=== PATIENT | male | born 1950 | race Caucasian/White ===

== ENCOUNTER → 2024-02-01 13:57 | Outpatient (REF) | payer MEDICARE, SELFPAY | LOC: REG 13:57 | PROVIDERS: ATTENDING PHYSICIAN Family Medicine | DX: J18.1 Lobar pneumonia, unspecified organism (principal) | CPT/HCPCS: 71046 ==

== ENCOUNTER → 2024-02-03 17:06 | Outpatient (REF) | payer MEDICARE, SELFPAY | LOC: RAD 17:06 | PROVIDERS: ATTENDING PHYSICIAN Family Medicine | DX: M79.604 Pain in right leg (principal) | CPT/HCPCS: 93970 ==

== ENCOUNTER 2024-03-11 18:36 | Emergency (ER) | payer MEDICARE, SELFPAY ==
[2024-03-11 18:39] VITALS: BP 136/65
[2024-03-11 19:13] VITALS: BMI 25.8
--- NOTE | 2024-03-11 19:15 | ED.MUSCINJ ---
HPI-Injury
General
Chief Complaint: Musculo-Skeletal Complaint
Source: patient
Exam Limitations: none
Time Seen by Provider: 03/11/24 18:49
History of Present Illness-Injury
Is this injury a work related problem?: No
Is pt an associate of [facility]/[place]?: No
Initial Injury comments:
This is a 73 year old male that comes in with c/o right ankle pain. States that on he was up in [place] and he was carrying to baskets and getting off a boat. States that he slipped and fell injuring his right ankle. States that he has
been walking on it. States that he also hit his left forearm. Denies hitting his head or any LOC. Denies any fever, chills, chest pain, SOB, abd pain, nausea, vomiting, diarrhea, headache, dizziness, urinary burning.
Past History
Past History
ED Past Medical History: Asthma, HTN, Hypercholesterolemia and Other (PNA, PE, Chronic bronchitis, Renal calculus)
ED Past Surgical History: Orthopedic (5th finger surgery ) and Other (Thyroid cyst removed, left eye lid surgery, Hernia)
Social History
Tobacco: Non-smoker (Past surgical history review)
Alcohol: Occasional
Personal:
Living: with family
Employment: Retired
Review of Systems
Review of Systems
All Other Systems: ROS reviewed and negative except as documented in HPI and ROS
Constitutional: Reports no symptoms; Denies fever or chills
EENT: Reports no symptoms
Respiratory: Reports no symptoms; Denies cough or trouble breathing
Cardiac: Reports no symptoms; Denies chest pain
ABD/GI: Reports no symptoms; Denies abdominal pain, nausea, vomiting or diarrhea
: Reports no symptoms; Denies dysuria, frequency or urgency
Musculoskeletal: Reports joint pain (Right ankle pain)
Skin: Reports no symptoms
Neurological: Reports no symptoms; Denies dizzy or headache
Psychiatric: Reports no symptoms
Musculoskeletal Injury Exam
Musculoskeletal Injury Exam
Right Medial Ankle:
Pain with Movement?: Mild
Tender to palpation?: Mild
Soft tissue swelling?: Mild
External deformity and angulation?: None
Joint effusion?: None
Contusion?: None
Hematoma-local bleeding into tissue?: None
Strain- Sprain- Tear (Connective tissue injury)?: None
Crepitus with movement?: No
Joint instability?: No
Malalignment/deformity?: No
Range of motion: Limited (Due to pain)
Distal skin color and temperature: normal-warm & good color
Capillary Refill: normal
Normal distal neurovascular exam?: Yes
Phy Exam
General Physical Exam
General Presentation: well appearing and no apparent distress
General age: appears stated age
General Skin: warm and dry
General Habitus: normal
General Mental: alert
General Hydration: appears well hydrated
ENT Exam
ENT Exam: TM's normal, pharynx normal and neck supple
Eye Exam
Eye Exam: EOMI
Musculoskeletal Exam
Musculoskeletal Exam: other (right medial aspect tenderness with palpation. Mild swelling noted. Negative for any cervical neck tenderness or spinal tenderness. )
Skin Exam
Skin Exam: normal color, warm/dry, no petechia and other (Left forearm, abrasion)
Psychiatric Exam
Psychiatric Exam: normal mood/affect
Injury Course
Orders/Labs/Results
Orders:
Orders
03/11/24 18:41
Ankle, Right 3 view CR [CR Ankle - Right Min 3 Views *] Urgent
Comment:
Reason For Exam: slipped off boat twisted right ankle
03/11/24 19:30
Randy Wrap Right-Treatment ONCE
Air Splint Right-Treatment ONCE
MDM/Problems Addressed
Differential Diagnosis Includes:
right ankle fracture Ankle sprain
MDM/Problems Addressed:
This is a 73 year old male that comes in with c/o right ankle pain. States that he was getting off a boat with baskets and he slipped. Patient is c/o right ankle pain.
Will Get X-ray
Back into see patient. Explained that there are no fracture or dislocation. Will place patient in an air splint and randy. Patient to use Tylenol 1000mg every 6 hours for pain. Rest, ice and elevated. If after 5-7 days patient feels that his ankle is
not getting any better he will need to see the biomedical specialist. Discussed the use of Crutches but patient has been walking on the foot and feel that since he is on Eliquis it is better to avoid the crutches. Will discharge home.
Chronic conditions affecting care:
NA
Acute Exacerbation and/or Progression of Chronic Illness:
NA
*Radiology
Radiology exam reviewed: preliminary read by ED provider (Right ankle negative for fracture or dislocation. ) and radiology read reviewed (right ankle-Degenerative changes, No findings to suggest recent cortical fracture)
*Pulse Oximetry
Patient hypoxic: no
*EKG
Interpreted by ED Provider?: NA
Rate: EKG- N/A
*Word Processor Operator Interpretation
Rate: Word Processor Operator- N/A
*Critical Care Note
Total Time (30-74mins, 75-104mins- exclusive of procedures): Not Applicable
ED Attending Note
-
Portions of this chart may have been created with voice recognition software.� Occasional wrong word or��sound alike� substitutions may have occurred due to the inherent limitations of voice recognition software.
Discharge Plan
Departure
Patient Disposition: Home (Routine Discharge)
Date of Disposition: 03/11/24
Time of Disposition: 19:45
Patient with high blood pressure during this ER visit?: Yes
Condition: Good
Covid-19: Not Applicable
Discharge Problem:
Right ankle sprain
Instructions: Ankle Sprain ED, Ankle air splint and elastic bandage, BLOOD PRESSURE, RICE Therapy
Prescriptions:
No Action
hydralazine 25 mg Tablet
75 mg PO BID
montelukast 10 mg Tablet
10 mg PO QPM
memantine 10 mg Tablet
10 mg PO BID
losartan-hydrochlorothiazide 100-25 mg tablet
1 tab PO QPM
albuterol sulfate 90 mcg/actuation HFA aerosol inhaler
2 puff INHALATION R Q4 PRN (Reason: sob/wheezing)
Eliquis 5 mg Tablet
5 mg PO BID Qty: 60 0RF
itraconazole 100 mg Capsule
100 mg PO QPM
Referrals:
Dar Mauricio MD [Active] - Follow up in 1 week
Nahomi Hogan MD [Family Provider] -
Activity Restrictions/Additional Instructions:
As discussed, no fracture or dislocation was seen on the x-ray. Please use the randy and air splint until you are pain free. You may use Tylenol 1000mg every 6 hours for pain. Rest, ice and elevated. If after the next 5-7 days you feel that your ankle
is not getting any better, you will need to see the biomedical specialist. IF YOU HAVE ANY OTHER CONCERNS PLEASE RETURN TO THE EMERGENCY ROOM.
Interventions
Interventions:
*Risk Screen - Suicide Last Done: 03/11/24 19:17
*General Assessment Last Done: 03/11/24 19:13
*Neglect/Abuse Screening Last Done: 03/11/24 19:17
ED- Fall Risk Assessment Last Done: 03/11/24 19:13
*ED COVID-19 Vaccine History Last Done: 03/11/24 18:39
ED-Musculoskeletal Assessment Last Done: 03/11/24 19:14
Discharge Date and Time
Print Language: TAMAZIGHT
== END 2024-03-11 20:18 | disposition home or self-care (01) ==
LOC: EMR 18:36
PROVIDERS: EMERGENCY PHYSICIAN Emergency Medicine; FAMILY PHYSICIAN Internal Medicine
DX: S93.401A Sprain of unspecified ligament of right ankle, initial encounter (principal); W01.0XXA Fall on same level from slipping, tripping and stumbling without subsequent striking against object, initial encounter; E78.00 Pure hypercholesterolemia, unspecified; I10 Essential (primary) hypertension; Z79.01 Long term (current) use of anticoagulants; Z87.442 Personal history of urinary calculi
CPT/HCPCS: 99283; 73610

== ENCOUNTER 2024-05-13 23:55 | Inpatient (IN) | payer MEDICARE, SELFPAY ==
[2024-05-13 20:40] VITALS: BP 125/63
[2024-05-13 21:13] VITALS: BP 129/58
[2024-05-13 21:15] VITALS: BP 129/58
[2024-05-13 21:19] LABS: % Basophils 0.1 % (0-2); % Eosinophils 0.1 % (0-6); % Immature Granulocytes 0.5 % (0-0.5); % Monocytes 10.7 % (1.7-9.3); % Neutrophils 77.6 % (42.2-75.2); Absolute Immature Granulocytes 0.1 10^3/uL (0-0.05); Absolute Lymphocytes 1.8 10^3/uL (1.2-3.4); Absolute Monocytes 1.7 10^3/uL (0.1-0.6); Absolute Neutrophils 12.6 10^3/uL (1.4-6.5); Hematocrit 35.2 % (39.0-52.0); Hemoglobin 12.2 g/dL (13.0-18.0); Mean Corp Hgb Conc. 34.7 g/dL (33.0-37.0); Mean Corpuscular Hgb 34.4 pg (27.0-31.0); Mean Corpuscular Volume 99.2 fL (80.0-94.0); Mean Platelet Volume 8.8 fL (7.4-10.4); Nucleated Red Blood Cells % 0 % (-); Platelet Count 186 10^3/uL (130-400); Red Blood Cell Count 3.55 10^6/uL (4.70-6.10); Red Cell Dist. Width 15.2 % (11.5-14.5); White Blood Cell Count 16.2 10^3/uL (4.8-10.8)
[2024-05-13 21:29] LABS: INR 1.24; PT 15.5 Sec (11.4-14.6)
[2024-05-13 21:30] LABS: APTT 37.3 Sec (23.4-35.0)
[2024-05-13 21:33] LABS: Erythrocyte Sed Rate 31 mm/hour (0-20)
--- NOTE | 2024-05-13 21:37 | ED.GENMED ---
History of Present Illness
General
Chief Complaint: Change in Mental Status
Source: patient, family and ambulance crew
Exam Limitations: clinical condition, altered mental status and dementia (?)
Time Seen by Provider: 05/13/24 20:48
Nursing documentation reviewed up to this point in time: agreed with
History of Present Illness
History of Present Illness:
This a pleasant 73-year-old male that presents with memory issues. Patient has a recent history of memory problems. Today he was supposed to pick his up at the airport and completely forgot. Family spoke to him and felt that he was confused.
They went to check on him and confirmed his confusion. Upon arrival, patient was awake alert and oriented but did have some memory issues. Patient denied chest pain or shortness of breath. Does have a history of chronic lung issues. He is on
Eliquis. He took 2-1/2 mg of Eliquis today.
If applicable-neuro sx onset
Date of onset of symptoms: 05/13/24
Date last time pt seen normal: 05/13/24
Time last time pt seen normal: 12:30
Past History
Past History
ED Past Medical History: Asthma, HTN, Hypercholesterolemia and Other (PNA, PE, Chronic bronchitis, Renal calculus)
ED Past Surgical History: Orthopedic (5th finger surgery ) and Other (Thyroid cyst removed, left eye lid surgery, Hernia)
Social History
Tobacco: Non-smoker (Past surgical history review)
Alcohol: Occasional
Personal:
Living: with family
Employment: Retired
Review of Systems
Review of Systems
Allergies reviewed?: Yes
Unable to obtain full review of systems at this time due to: dementia (? Being worked up for memory issues)
Other source history: family
All Other Systems: ROS reviewed and negative except as documented in HPI and ROS
Constitutional: Denies fever or fatigue
EENT: Reports no symptoms
Respiratory: Reports no symptoms
Cardiac: Reports no symptoms
ABD/GI: Reports no symptoms
: Reports no symptoms
Musculoskeletal: Reports no symptoms
Skin: Reports no symptoms
Neurological: Denies headache or weakness
Endocrine: Reports no symptoms
Hematologic/Lymphatic: Reports no symptoms
Psychiatric: Reports no symptoms
Phy Exam
General Physical Exam
General Presentation: well appearing and no apparent distress
General Skin: warm and dry
General Habitus: normal
General Mental: alert
General Hydration: appears well hydrated
ENT Exam
ENT Exam: EOMI, pharynx normal, neck supple and normocephalic
Eye Exam
Eye Exam: PERRL, cornea clear and conjunctiva normal
Cardiovascular Exam
Cardiovascular Exam: regular rate/rhythm, no edema, no murmur and normal peripheral pulses
Pulmonary Exam
Pulmonary Exam: lungs clear, no respiratory distress, no rales, no crackles, no rhonchi, no stridor, no wheezing and no cough
Gastrointestinal Exam
Gastrointestinal Exam: normal bowel sounds, non tender, soft, no organomegaly, no pulsatile mass and non distended
Neurological Exam
Neurological Exam: alert, oriented x3, no motor deficits and speech normal
NIH Stroke Score
Level of Consciousness: 0 - Alert
LOC questions: 0-Answers both correctly
LOC Commands: 0-Performs both correctly
Best Gaze: 0-Normal
Visual [place]: 0=Normal, no visual loss
Facial palsy: 0=Normal, symmetrical
Motor - Right Arm: 0=No drift 10 seconds
Motor - Left Arm: 0=No drift 10 seconds
Motor - Right Le-No drift 5 seconds
Motor - Left Le-No drift 5 seconds
Limb Ataxia: 0-Absent
Sensation: 0-Normal
Best Language: 1-Mild aphasia
Dysarthria: 0-Normal
Extinction and Inattention: 0-No abnormality
Total Score:: 1
Alteplase Contraindication
Reasons for NON-Treatment with Thrombolytics: Time and Use of any novel anticoagulant (Pradaxa, Xarelto) in the last 48 hours
Musculoskeletal Exam
Musculoskeletal Exam: full ROM, no edema and neuro vasc intact
Skin Exam
Skin Exam: normal color, warm/dry, no rash and no petechia
Psychiatric Exam
Psychiatric Exam: normal mood/affect
Course
Orders/Labs/Results
Orders:
Orders
05/13/24 20:48
CT Head W/o Cont STROKE ALERT Urgent
Comment:
Reason For Exam: new onset memory loss
CT Head/Neck Ang STROKE ALERT Urgent
Comment:
Reason For Exam: new onset memory loss
05/13/24 21:14
Complete Blood Count/With Diff Urgent
Comprehensive Metabolic Panel Urgent
Erythrocyte Sed Rate Urgent
PTT Urgent
Prothrombin Time Urgent
05/13/24 21:36
Apixaban [Eliquis] 2.5 mg PO NOW STA
05/13/24 21:37
Aspirin 325 mg PO NOW STA
05/13/24 21:42
CR Chest - 2 Views Urgent
Comment:
Reason For Exam: hx of lung condition
05/13/24 21:51
Urinalysis Reflex To Culture Urgent
Date Specimen was Collected: 05/13/24
Time Specimen was Collected: 23:18
05/13/24 23:25
Procalcitonin Urgent
PCT Algorithmm Indication: Sepsis
Azithromycin 500 mg/250 ml [Zithromax Infusion] 500 mg in 250 ml IV NOW
CefTRIAXone [Rocephin] 1,000 mg IV NOW STA
05/13/24 23:30
Lactic Acid Q4H
Comment: CANCEL 2nd LACTIC ACID IF 1st LACTIC ACID IS LESS THAN 2
0.9% Sodium Chloride 1000 ml [Nss] 1,000 ml IV 250 mls/hr
05/14/24 03:30
Lactic Acid Q4H
Comment: CANCEL 2nd LACTIC ACID IF 1st LACTIC ACID IS LESS THAN 2
Abnormal Lab Results
05/13/24
21:14
WBC 16.2 H 10^3/uL
(4.8-10.8)
RBC 3.55 L 10^6/uL
(4.70-6.10)
Hgb 12.2 L g/dL
(13.0-18.0)
Hct 35.2 L %
(39.0-52.0)
MCV 99.2 H fL
(80.0-94.0)
MCH 34.4 H pg
(27.0-31.0)
RDW 15.2 H %
(11.5-14.5)
Abs Immat Gran (auto) 0.1 H 10^3/uL
(0-0.05)
Absolute Neuts (auto) 12.6 H 10^3/uL
(1.4-6.5)
Absolute Monos (auto) 1.7 H 10^3/uL
(0.1-0.6)
Neutrophils % 77.6 H %
(42.2-75.2)
Lymphocytes % 11.0 L %
(20.5-51.1)
Monocytes % 10.7 H %
(1.7-9.3)
ESR 31 H mm/hour
(0-20)
PT 15.5 H Sec
(11.4-14.6)
APTT 37.3 H Sec
(23.4-35.0)
BUN 39 H mg/dl
(9-20)
Creatinine 1.4 H mg/dL
(0.7-1.3)
Glucose 104 H mg/dl
(70-99)
Total Bilirubin 1.5 H mg/dl
(0.2-1.3)
AST 15 L U/L
(17-59)
Total Protein 5.0 L g/dl
(6.3-8.2)
Albumin 3.0 L g/dl
(3.5-5.0)
05/13/24 21:14
05/13/24 21:14
Vital Signs
Initial and Last Documented VS:
Initial Vital Signs
Temp Pulse Resp BP Pulse Ox
98.5 F 87 16 125/63 97
05/13/24 20:40 05/13/24 20:40 05/13/24 20:40 05/13/24 20:40 05/13/24 20:40
Last Documented Vital Signs
Temp Pulse Resp BP Pulse Ox
98.5 F 75 16 116/55 92
05/13/24 20:40 05/13/24 22:00 05/13/24 22:02 05/13/24 22:00 05/13/24 22:00
*Pulse Oximetry
Patient hypoxic: no
*Critical Care Note
Total Time (30-74mins, 75-104mins- exclusive of procedures): Not Applicable
Update Note
Update Note:
IMPRESSION:
CT Brain: No acute intracranial process. Specifically, no evidence of acute hemorrhage. Mild global parenchymal volume loss with likely sequelae of mild small vessel ischemic disease.
CTA Head: No significant arterial stenosis. No aneurysm.
CTA Neck: No significant arterial stenosis. There is similar appearance of the masslike consolidation with bronchiectasis within the bilateral upper lobes. There are additional foci of bronchiectasis with areas of likely mucous plugging.
Initial findings of no intracranial bleed or large vessel occlusion were discussed via [place] text at 2107 and 2113
ED Attending Note
-
Portions of this chart may have been created with voice recognition software.� Occasional wrong word or��sound alike� substitutions may have occurred due to the inherent limitations of voice recognition software.
Discharge Plan
Departure
Patient Disposition: Admit
Date of Disposition: 05/13/24
Time of Disposition: 23:29
Admit to: Telemetry
Presentation/result/management discussed w/ accepting MD/DO: Hospitalist
Condition: Good
Discharge Problem:
Aphasia, Pneumonia
Prescriptions:
No Action
hydralazine 25 mg Tablet
75 mg PO BID
montelukast 10 mg Tablet
10 mg PO QPM
memantine 10 mg Tablet
10 mg PO BID
losartan-hydrochlorothiazide 100-25 mg tablet
1 tab PO QPM
albuterol sulfate 90 mcg/actuation HFA aerosol inhaler
2 puff INHALATION R Q4 PRN (Reason: sob/wheezing)
itraconazole 100 mg Capsule
100 mg PO QPM
Eliquis 5 mg tablet
2.5 mg PO BID
fluticasone propion-salmeterol [Wixela Inhub] 500-50 mcg/dose Blister With Device
1 inh INHALATION BID
Referrals:
UNKNOWN - PT DOES,NOT KNOW [Family Provider] -
Interventions
Interventions:
*Risk Screen - Suicide Last Done: 05/13/24 21:15
*General Assessment Last Done: 05/13/24 20:40
*Neglect/Abuse Screening Last Done: 05/13/24 21:15
*ED COVID-19 Vaccine History Last Done: 05/13/24 21:15
ED- Neurological Assessment Last Done: 05/13/24 21:16
ED Swallowing Screen Last Done: 05/13/24 21:21
Discharge Date and Time
Print Language: ARMENIAN
[2024-05-13 21:41] LABS: ALT (SGPT) 15 U/L (0-50); AST (SGOT) 15 U/L (17-59); Alkaline Phosphatase 59 U/L (38-126); Blood Urea Nitrogen 39 mg/dl (9-20); Calcium 9.6 mg/dl (8.4-10.2); Carbon Dioxide 23 mmol/L (22-30); Chloride 106 mmol/L (98-107); Glucose 104 mg/dl (70-99); Potassium 4.3 mmol/L (3.5-5.1); Sodium 136 mmol/L (135-145); Total Bilirubin 1.5 mg/dl (0.2-1.3); eGFR 52.41
[2024-05-13] MEDS: ASPIRIN 325 MG PO (21:41)
[2024-05-13] MEDS: ELIQUIS 2.5 MG PO (21:41)
[2024-05-13 22:00] VITALS: BP 116/55
--- NOTE | 2024-05-13 23:36 | HPS.HSE ---
Addendum entered and electronically signed by Lexy Andrade MD 05/14/24 00:07:
Discussed with the PA, please review updated note
Original Note:
Family Physician
-
Family Physician: NOT KNOW UNKNOWN - PT DOES
Chief Complaint
-
Amnesia
History of Present Illness
73-year-old male came to ER today due to forgetting to pick his up at the airport. His family reports speaking with him and realizing he forgot to pick his up today. Family states he did go to the airport he was unable to use his phone
he forgot how to dial and was unable to find his . They felt he was confused although he does have short-term memory impairment and is on Namenda 10 mg twice daily. He has history of chronic lung disease. He has had a cough with yellow phlegm
x 1 month per his . He denies shortness breath, fever, chills, chest pain, palpitations, abdominal pain, nausea, vomiting, diarrhea, urinary symptoms.
He has past medical history HTN, nonobstructive CAD on cath 2015, first-degree AV block, dilated aortic root, mild AR, mild TR, pulm HTN, asthma mild and intermittent, chronic bronchitis, bronchiectasis, allergic bronchopulmonary aspergillosis,
chronic rhinitis, extensive bilateral PE and left lower extremity DVT 05/08/2023 on Eliquis, pneumothorax 2014, 2.5 cm nodular mass left cardiophrenic angle on chest x-ray 09/01/2023, CKD 3A, GERD, colonic polyps, diverticulosis, nephrolithiasis,
short-term memory impairment, migraines, left thyroid lobe lesion incidentally on chest CT 04/26/2023, gout, melanoma status post multiple excisions
Medical History
Past Medical History
Past Medical History: Reports Other
Additional Past Medical History:
. Hypertension.
Mild, non-obstructive coronary artery disease on cath 2015.
First degree AV block.
Dilated aortic root.
Mild aortic regurgitation.
Mild tricuspid regurgitation.
Pulmonary hypertension.
Asthma, mild and intermittent.
Chronic bronchitis with chronic cough.
Bronchiectasis.
Allergic bronchopulmonary aspergillosis.
Chronic rhinitis.
Extensive bilateral pulmonary embolism and left lower extremity
DVT, 04/2023, on Eliquis. Hypercoagulable work-up pending.
Pneumothorax 2014.
2.5 cm nodular mass at the left cardiophrenic angle on chest
x-ray 09/01/2023; work-up with pulmonary ongoing.
Mild renal insufficiency per pre-operative labs.
GERD.
Colon polyps.
Diverticulosis.
Cholelithiasis, asymptomatic.
Nephrolithiasis.
Short-term memory impairment.
Migraines
Left thyroid lobe lesion noted incidentally on chest CTA 04/2023.
Gout.
Skin cancer including Melanoma, status post multiple excisions.
Peripheral eosinophilia.
Past Surgical History: Reports Other (Thyroid cyst removal, eyelid surgery, umbilical hernia repair, left fifth finger surgery)
Social History
Alcohol: None
Drug: None
Personal:
Living: With Family
Family History
Family History: Not pertinent
Allergies / Home Medications
Allergies reflects when Allergies were last updated in [facility].
Home Medications with original date entered in [facility]
Allergy/Medication List:
Allergies
Allergy/AdvReac Type Severity Reaction Status Date / Time
cigarette smoke Allergy Asthma Verified 03/11/24 18:40
exacerbation
mesa Allergy Asthma Verified 03/11/24 18:40
exacerbation
grass pollen Allergy asthma Verified 03/11/24 18:40
exacerbation
pollen extracts Allergy Runny Verified 03/11/24 18:40
nose,
sinus
infections
- seasonal
dogs Allergy asthma Uncoded 03/11/24 18:40
exacerbation
Home Medications
hydralazine 25 mg tablet 75 mg PO BID Blood Pressure 04/25/23
memantine 10 mg tablet 10 mg PO BID Neurological Condition 04/25/23
montelukast 10 mg tablet 10 mg PO QPM Lung/Breathing Issues 04/25/23
albuterol sulfate 90 mcg/actuation aerosol inhaler 2 puff inhalation R Q4 PRN sob/wheezing 04/26/23
losartan 100 mg-hydrochlorothiazide 25 mg tablet 1 tab PO QPM Blood Pressure 04/26/23
itraconazole 100 mg capsule 100 mg PO QPM 09/20/23
apixaban 5 mg tablet (Eliquis) 2.5 mg PO BID 05/13/24
fluticasone 500 mcg-salmeterol 50 mcg/dose blistr powdr for inhalation (Wixela Inhub) 1 inh inhalation BID 05/13/24
Review of Systems
-
History Source: Patient and Family
A 12 point ROS was completed and negative except as noted: Yes
Constitutional: Reports Other (Difficulty remembering picking his up today had difficulty recognizing a phone and how to use it); Denies Fever, Fatigue or Chills
EENT: Denies Sore Throat or Mouth Swelling
Respiratory: Reports Cough (Yellow in color); Denies Trouble Breathing
Cardiac: Denies Chest Pain, Diaphoresis, Palpitations or Syncope
Abdomen/GI: Denies Abdominal Pain, Nausea, Vomiting, Diarrhea or Constipated
: Denies Dysuria, Frequency, Flank Pain, Incontinence, Difficulty Voiding or Urgency
Musculoskeletal: Denies Joint Pain
Skin: Denies Itching or Rash
Neurological: Denies Dizzy, Headache or Weakness
Endocrine: Reports No Symptoms
Hematologic/Lymphatic: Reports No Symptoms
Psych: Reports Calm
Physical Exam
Vital Signs
Vital Signs
Temp Pulse Resp BP Pulse Ox
98.5 F 72 21 116/55 92
05/13/24 20:40 05/13/24 23:30 05/13/24 23:30 05/13/24 22:00 05/13/24 23:30
Physical Exam
General: Comfortable; No Fever or Chills
HEENT: NormoCephalic, Anicteric, Moist mucous membranes, PERRLA, [place] Conjunctivae and No Ptosis
Respiratory: Clear; No Wheezes, Rales or Rhonchi
Cardiac: S1/S2 and Irregular Rhythm (Concern for A-fib will check EKG to confirm); No Peripheral Edema
Breast: Deferred by me
GI: Soft, Non Tender, Non Distended, Normal Bowel Sounds and No Hepatosplenomegaly
Rectal: Deferred by Provider
Genito-urinary: Deferred by me
Musculoskeletal: No Clubbing, No Cyanosis and No Edema
Skin: Warm and Dry; No Rash or Jaundice
Neuro: AO x 3 (The patient has problems with short-term memory impairment typically), Nonfocal/grossly intact, Cranial Nerves Intact and No Sensory Deficits; No Slurred Speech, Facial Droop or Tremors
Psych: Calm
Laboratory Results
-
05/13/24 21:14
05/13/24 21:14
Laboratory Results
PT 15.5 Sec (11.4-14.6) H 05/13/24 21:14
INR 1.24 05/13/24 21:14
APTT 37.3 Sec (23.4-35.0) H 05/13/24 21:14
Total Bilirubin 1.5 mg/dl (0.2-1.3) H 05/13/24 21:14
AST 15 U/L (17-59) L 05/13/24 21:14
ALT 15 U/L (0-50) 05/13/24 21:14
Alkaline Phosphatase 59 U/L (38-126) 05/13/24 21:14
Data Reviewed
-
Diagnostic Radiology: Report Reviewed by me
CT Scan: Report Reviewed by me
Impression/Plan
-
Impression/plan:
Admit to telemetry
#Right lower lobe pneumonia
WBC 16.2 with left shift, afebrile 92% RA
-Zithromax, Rocephin
-Incentive spirometry
- follow cbc, bmp
#Amnesia-concern possible CVA
#Hx chronic short-term memory impairment/ dementia
-Consult neurology
-Continue oral Eliquis
-Check lipid profile, HgbA1c
-PT/OT/case management
-Continue memantine 10 mg p.o. twice daily
CTA brain/head and neck without contrast: No acute intracranial process, no arterial stenosis, no aneurysm.
Masslike consolidation within the bronchiectasis of bilateral upper lobes with areas of mucous plugging
#Masslike consolidation within the bronchiectasis of bilateral upper lobes with areas of mucous plugging
Would consider CT chest once ruled out for stroke to evaluate masslike consolidation further
#Possible A-fib on monitor
-Will obtain EKG
-Continue [employer] Eliquis 2.5 mg twice daily
-If EKG showing A-fib will consult CBC cardiology
#Asthma mild and intermittent-no acute exacerbation
#chronic bronchitis/ bronchiectasis
#allergic bronchopulmonary aspergillosis
-Continue albuterol as needed
#CKD 3 A
Creat 1.4 baseline 1. 1�1.3
#Extensive bilateral PE and left lower extremity DVT 05/08/2023
-Continue Eliquis 2.5 mg twice daily
#HTN
Continue hydralazine 75 mg twice daily
-Continue losartan/HCTZ 1 tab every afternoon
#Nonobstructive CAD on cath 2015
#First-degree AV block hx
#dilated aortic root
#mild AR,mild TR
#Pulm HTN
#GERD
#colonic polyps hx
#diverticulosis hx
Other past medical history:
Pneumothorax 2014
2.5 cm nodular mass left cardiophrenic angle on chest x-ray 09/01/2023,
chronic rhinitis
Nephrolithiasis
Migraines
Left thyroid lobe lesion incidentally on chest CT 04/26/2023
Gout
Melanoma status post multiple excisions
DVT prophylaxis
Continue [employer] Eliquis
Full code
[2024-05-13] MEDS: ZITHROMAX INFUSION 250 IV (23:51)
[2024-05-13] MEDS: NSS 1000 IV (23:51)
[2024-05-13] MEDS: ROCEPHIN 1000 MG IV (23:51)
[2024-05-14] VITALS (9 sets, daily range): BP systolic 106–119; BP diastolic 42–65; PULSE 68; O2SAT 94; BMI 25.0
--- NOTE | 2024-05-14 00:01 | W.PN.UPDATE ---
Update Note
Progress Note Update
Seen and examined and discussed, awake and alert oriented to person and place and knows month is April but does not know the date, brought to the hospital after and the family can await about it but she supposed to pickler helper his from the
air[place] and look like he mated there but he were not able to find his , his baseline usually oriented x 3 but Some degree of cognitive dysfunction which is confirmed by the and the daughter. He has been coughing for a month-yellowish
phlegm otherwise no fever or chill or any weakness or numbness in extremities no facial droop, no urinary or bowel incontinent.
Vital signs reviewed
Physical exam:
General: Awake, alert and oriented x3, not in distress and holds appropriate conversation., Pleasantly confused and cognitive dysfunction appreciated
HEENT: No active discharge, ecchymosis or bruising, moist lips, tongue and mucous membrane.
Eyes: No discharge or red conjunctiva, no nystagmus, pupils are reactive and equal
Neck:Supple, no JVD no bruit no goiter.
Respiratory: Normal AP contour and diameter, normal chest wall movement, normal respiratory effort, no respiratory distress,
Lungs: Good air entry bilaterally, no wheezing or rhonchi, no rales or crackles
Heart: S1, S2 regular, normal rate, no added sound.
Gastrointestinal: Positive bowel sounds, soft, nontender, no guarding or rigidity or organomegaly
Musculoskeletal: , no chest wall abnormality or tenderness. All joints and extremities have good range of motion, no muscle tenderness or any joint swelling or tenderness.
Extremities: No pitting edema, good peripheral pulses, good range of motion
Skin: Warm and dry, no ulceration, normal color.
Neurological: Awake, alert and oriented x3, knows it is April but does not answer what day of the week, cranial nerve II-XII grossly intact, speech clear and comprehensive, good muscle tone, normal sensory and motor function no facial droop,
extension intention intact
Psychiatric: Normal mood, normal thought and judgment, normal affect,
Workup including labs, imaging,
Assessment and plan:
Confusion: Stroke admitted to be considered, seen by neurology, CT head CTA head and neck was reviewed and showed no acute abnormality
Neurocheck
Get MRI to complete the workup if the MRI positive then may need an echo
Swallowing eval
Patient already anticoagulated
Add statin
Lipid panel
Pneumonia on the right side, chest x-ray shows some chronic change shoulders some new consolidation masslike, will cover with Rocephin and Zithromax for pneumonia while once stable and stroke ruled out may need a CT chest to rule out mass lesion.
The monitor heart rate is irregular irregular, A-fib may need to be considered on rule out
Get an EKG
Patient on Eliquis, EKG showed A-fib and will cardiology,
EKG ordered
Discussed with the night covering team
History of DVT: Anticoagulated with Eliquis was changed recently to 2.5 twice daily
The rest of the assessment management as per H&P
All discussed with the patient and the family
Discussed with nurse practitioner
CODE STATUS full code
DVT prophylaxis is Eliquis
[2024-05-14 00:13] LABS: Lactic Acid 1.1 mmol/L (0.7-2.0)
[2024-05-14 00:30] LABS: Procalcitonin 1.68 ng/ml (0.0-0.25)
--- NOTE | 2024-05-14 01:32 | PTCARENOTE ---
Pt arrived onto floor @0132. Pt able to walk into room with minimal assistance. Pt with no complaints of pain or SOB at this time. Pt oriented to room and call morgan; will continue to monitor.
[2024-05-14] MEDS: NSS 1000 IV ×4 (05:42→22:50)
[2024-05-14 08:05] LABS: % Basophils 0.2 % (0-2); % Eosinophils 0.8 % (0-6); % Immature Granulocytes 0.5 % (0-0.5); % Lymphocytes 10.6 % (20.5-51.1); % Monocytes 10.6 % (1.7-9.3); % Neutrophils 77.3 % (42.2-75.2); Absolute Eosinophils 0.1 10^3/uL (0-0.7); Absolute Immature Granulocytes 0.1 10^3/uL (0-0.05); Absolute Lymphocytes 1.4 10^3/uL (1.2-3.4); Absolute Monocytes 1.4 10^3/uL (0.1-0.6); Absolute Neutrophils 10.2 10^3/uL (1.4-6.5); Hematocrit 34.3 % (39.0-52.0); Hemoglobin 11.8 g/dL (13.0-18.0); Mean Corp Hgb Conc. 34.4 g/dL (33.0-37.0); Mean Corpuscular Volume 104.6 fL (80.0-94.0); Mean Platelet Volume 9.7 fL (7.4-10.4); Nucleated Red Blood Cells % 0 % (-); Platelet Count 152 10^3/uL (130-400); Red Blood Cell Count 3.28 10^6/uL (4.70-6.10); Red Cell Dist. Width 15.3 % (11.5-14.5); White Blood Cell Count 13.1 10^3/uL (4.8-10.8)
[2024-05-14] MEDS: ADVAIR HFA 230/21 MCG INHALER 2 PUFF INH ×2 (08:17→19:16)
[2024-05-14 08:30] LABS: HDL Cholesterol 55 mg/dl; LDL Cholesterol, Calculated 30 mg/dl; Total Cholesterol 101 mg/dl (50-199); Triglyceride 81 mg/dl (10-149); Very Low Density Lipoprotein 16 mg/dl (0-30)
--- NOTE | 2024-05-14 08:47 | W.PN.HOSP.TC ---
Today's Communication/Plan
-
MRI of the brain. IV antibiotics.
Assessment / Plan
Assessment / Plan
Physical exam:
General: Acute on chronically ill
HEENT: Normocephalic, Atraumatic and Moist Mucous Membranes
Respiratory: Bilateral scattered rhonchi; Negative Wheezes, or Rales
Cardiac: Regular Rhythm and S1/S2
GI: Soft, Nontender and Nondistended
Musculoskeletal: No Clubbing, No Cyanosis and No Edema
Neuro: Awake, Alert and Oriented x2, no gross neurological deficits appreciated today. Generalized weakness.
Psych: Calm
A/P:
Toxic metabolic encephalopathy:
Unclear if stroke related or pneumonia or dehydration.
He does have underlying cognitive deficits/memory impairment.
Continue Eliquis 2.5 mg twice daily and atorvastatin 40 mg nightly
Plan for MRI of the brain
Seen CT scan of the head and no acute intracranial abnormalities
Restarted antibiotics
Continue Namenda
Discussed with neurology today
Discussed with at bedside today
PT OT eval
Pneumonia versus other:
Seen chest x-ray by myself and my interpretation opacities in right lower lobe present but he has chronic opacities and findings on his chest images in the past as well.
Restart IV Rocephin and azithromycin today
Might need CT scan of the chest for further evaluation.
Stop current IV fluid rate to 250 cc/h of normal saline. If anything keep at 85 mL or stop altogether.
Obtained twelve-lead EKG and QTc is not prohibitive
WBC trending down from 16 to 13 (of note, patient has been on steroids as outpatient)
Pulmonary consult-discussed with pulmonary today
Chronic pulmonary aspergillosis/asthma:
On itraconazole on a 100 mg p.o. nightly
On steroids outpatient recently.
DVT/PE:
Continue Eliquis
MELVIN on CKD stage IIIa:
Continue IV fluids but decrease significantly his rate today
Repeated BMP today.
Creatinine 1.1 today from 1.4. BUN is coming down as well.
Electrolytes within normal limits today.
Avoid nephrotoxic
Monitor renal function
Hypertension:
Okay to keep HCTZ and losartan for now as long as renal function remains stable otherwise would hold
Continue oral hydralazine.
Monitor blood pressure adjust medications accordingly
DVT prophylaxis-Eliquis
CODE STATUS-full code
Total time spent on today's encounter was 52 minutes which included time spent in counseling the patient/family regarding diagnosis and treatment plan as listed above, goals of care, and symptom management. Case was discussed with nursing staff,
specialists, and care coordinators/case management. All labs and imaging personally reviewed by me. Remainder the time spent in detailed review of previous records, lab data, imaging, and other medical provider documentation.
Anticipated Discharge: > 48 hours
Subjective/Interval History
-
Date of Service: May 14, 2024
Patient alert, mildly confused. He has a productive cough. Afebrile. No chest pain or shortness of breath
Objective Data
-
Labs:
Laboratory Results
05/13/24 05/14/24
21:14 07:17
WBC 16.2 H 13.1 H
Hgb 12.2 L 11.8 L
Hct 35.2 L 34.3 L
Plt Count 186 152
PT 15.5 H
INR 1.24
APTT 37.3 H
Sodium 136
Potassium 4.3
Chloride 106
Carbon Dioxide 23
BUN 39 H
Creatinine 1.4 H
Glucose 104 H
Calcium 9.6
Total Bilirubin 1.5 H
AST 15 L
ALT 15
Alkaline Phosphatase 59
Vital Signs:
Vital Signs
Temp Pulse Resp BP Pulse Ox
98.2 F 88 18 119/51 95
05/14/24 07:50 05/14/24 08:21 08/26/24 08:21 05/14/24 07:50 05/14/24 08:21
--- NOTE | 2024-05-14 09:17 | CON.NEURO4 ---
Addendum entered and electronically signed by Emiliano Larsen MD 05/14/24 15:33:
Studies reviewed.
I have personally examined the patient. I reviewed and agree with the DETHISTLER OPERATOR's Note.
My addenda:
Awake, alert, interactive. No acute distress.
Speech intact.
Follows 2-step requests w/ difficulty. No tremor.
Extra-ocular movements grossly intact.
Facial movements full and symmetric. Hearing intact to normal conversational volume.
Normal UE movements bilaterally.
Neck: full ROM.
Chest: no dyspnea
Heart: no JVD
Ext: (-) Clubbing, (-) Cyanosis, (-) Edema
IMPRESSIONS/RECOMMENDATIONS:
Abrupt onset of worsening cognition with a longstanding history of cognitive decline beginning in 2006. Differential diagnosis includes mild exacerbation of longstanding Alzheimer's dementia. Symptoms do not match seizure.
Continue patient's usual memantine
Check MRI brain as scheduled
Consider additional vascular evaluation if there is evidence of an acute ischemic stroke
Continue patient's usual apixaban
Patient would likely benefit from repeated neurocognitive evaluation as outpatient
D/W patient / family
Will continue to follow pending results.
Original Note:
Documented by User: Sophia Goldberg NP 05/14/24 12:22
Consultation - Neurology 4
-
CONSULTING PHYSICIAN: Emiliano Larsen MD
REFERRING PHYSICIAN: [facility]
DICTATED BY: TALIA Middleton
DATE/TIME OF REQUEST: 05/13/24
DATE/TIME OF CONSULTATION: 05/14/24
Reason for Consultation: Confusion
History of Present Illness:
This is a 73-year-old left-handed male who has presented to the hospital on 05/13/24 with report of confusion. Patient is followed as an outpatient by Neurology Dr. Elissa Ledbetter for cognitive impairment. Per outpatient records, patient has a
history of memory lapses initially most notable at work, dating back to 2010. This was initially attributed to ADD given lack of significant progression of symptoms over a 10 year period. He completed a 23 and me and was positive for the APoE4
allele. Over the past two years, outpatient encounters note that his memory has been getting worse and there has been a significant decline in word finding and formulating sentences. He was started on Namenda about 2 years ago due to this change.
Most recent [employer] test results in September 2022 were 94.7 global cognitive score and 73.1 memory. MRI brain demonstrated small vessel disease and mild atrophy. Family reports no formal title has been given for his cognitive changes but outpatient
note by Dr. Ledbetter has Alzheimer disease listed as one of his diagnoses. It does not appear that he has had neuropsychological testing completed. He has not been tried on any of the new Alzheimer disease modifying medications.
Patient's spouse reports that she was just away for 5 days. The patient was supposed to pick her up from the airport last evening but never showed up. His family called him and he sounded more confused than baseline on the phone. Apparently patient
had shown up to the airport but was unsure where to go and was having difficulty figuring out how to use his phone. On arrival home, it appeared he hadn't taken his medications yesterday including his Eliquis. His spouse reports that she found a
pair of his shorts yesterday that were saturated in urine. CT head and CTA head/neck were obtained on arrival in the ER and are negative for any acute abnormalities. NIHSS was 1 for mild aphasia. He was not a candidate for TNK/IAT due to low
NIHSS/Eliquis in the past 48hrs. He was provided a loading dose of aspirin in the ER. Chest xray was obtained and demonstrates a RLL pneumonia. Today (05/14/24), patient reports feeling at his baseline. He has poor incite to his chronic memory
issues. He denies any headache, dizziness, vision changes, speech/swallow difficulty, numbness, weakness, chest pain, palpitations, and shortness of breath. Patient's notes that he has had two episodes of urinary incontinence in April, and one
episode of bowel incontinence in March 2024 which was unusual for him. They deny any history of seizure or stroke in the past. He is taking Eliquis due to a history of b/l PE, LLE DVT in 04/2023.
Past Medical History: B/L PE and LLE DVT (04/2023) on Eliquis, HTN, thyroid disorder, chronic pulmonary aspergillosis, renal calculi, collapsed lung, asthma, MARCIA, gout, diverticulosis
Surgical History: Cardiac catheterization, thyroid cyst removal, left eyelid surgery, hernia repair 5th finger surgery, melanoma removal
Family History: Father- Alzheimer's disease, mother- dementia.
Social History: Occasional alcohol. Denies tobacco and illicit drug use.
Allergies: Pollen extracts, grass pollen, mesa, cigarette smoke, dogs.
Home Medications: See below.
Review of Symptoms:
Patient denies any fever, headache, chest pain, shortness of breath, GI or symptoms.
�Per the HPI.�All systems are reviewed negative except above.
Physical Exam:
The patient is afebrile, abdomen is nondistended, breathing is unlabored, skin is warm and dry, no edema.
NIH Stroke Scale:
I performed the NIH stroke scale on the patient on 05/14/24 at 0915. The patient scored 0 points on the NIH stroke scale assessment, which were assigned as follows: See below.
Neurologic Examination:
The patient is awake, alert and oriented x 3, poor historian. He is able to follow commands and answer questions appropriately. There is no aphasia or dysarthria. On cranial nerve assessment, pupils are 3 mm bilateral, round and reactive to light
and accommodation. Visual [place] are full. Extraocular movements are intact. Facial sensations are intact and bilaterally symmetrical, there is no facial asymmetry. Hearing is intact bilaterally to normal conversation volume. Tongue palate and uvula
are midline. Sternocleidomastoid strengths are full bilaterally. Motor strengths are 5/5 bilateral upper and lower extremities on medical research [place] scale. There is no drift or involuntary movement noted. Deep tendon reflexes are 1+ bilateral
upper and lower extremities and Babinski is absent bilaterally. There was no extinction noted on double simultaneous stimulation. Coordination is intact by finger to nose bilaterally.
Lab Results: See below.
Neuro Imaging:
1. CT Head 05/13/24: No acute intracranial process. Specifically, no evidence of acute hemorrhage. Mild global parenchymal volume loss with likely sequelae of mild small vessel ischemic disease.
2. CTA Head/Neck 05/13/24: No significant arterial stenosis. No aneurysm. There is similar appearance of the masslike consolidation with bronchiectasis within the bilateral upper lobes. There are additional foci of bronchiectasis with areas of likely
mucous plugging.
Differentials for the patient's presentation include:
1. TME in the setting of pneumonia likely exacerbating underlying cognitive impairment.
2. Low concern for ischemic stroke but possible.
3. RLL pneumonia.
4. Low concern for seizure.
Patient has the following risk factors for their symptoms: HTN, Hx PE/DVT missed medication dose, cognitive impairment, age, pneumonia.
IV Tenecteplase/IAT candidacy: He was not a candidate for TNK/IAT due to low NIHSS/Eliquis in the past 48hrs.
Recommendations:
-Continue home Eliquis.
-MRI brain noncontrast pending.
-Goal normotension.
-Continue home Namenda.
-Infection workup/treatment per primary team.
-NIHSS and neurological checks per unit guidelines.
-Provide patient with a stroke education packet.
-If MRI brain demonstrates a stroke, LDL goal will be less than 70. LDL is 30, okay to hold off on starting statin therapy as LDL is at goal.
-Goal normoglycemia, hbA1c is pending.
-Checking blood work for metabolic abnormalities.
-DVT prophylaxis with OAC.
-ST evaluation.
-Patient should follow-up with Dr. Ledbetter as soon as possible, can consider candidacy for disease modifying treatments for Alzheimer disease as an outpatient.
Discussed patient care with: Dr. Larsen, the patient, patient's spouse
Vital Signs and Labs
-
Vital Signs and Labs:
Vital Signs
Temp Pulse Resp BP Pulse Ox
98.8 F 63 19 113/47 92
05/14/24 10:41 05/14/24 10:41 05/14/24 10:41 05/14/24 10:41 05/14/24 10:41
Lab Results
05/14/24 07:17
PT 15.5 Sec (11.4-14.6) H 05/13/24 21:14
INR 1.24 05/13/24 21:14
APTT 37.3 Sec (23.4-35.0) H 05/13/24 21:14
Sodium 136 mmol/L (135-145) 05/13/24 21:14
Potassium 4.3 mmol/L (3.5-5.1) 05/13/24 21:14
BUN 39 mg/dl (9-20) H 05/13/24 21:14
Glucose 104 mg/dl (70-99) H 05/13/24 21:14
Calcium 9.6 mg/dl (8.4-10.2) 05/13/24 21:14
LDL Cholesterol, Calc 30 mg/dl 05/14/24 07:17
Medications
-
Medications:
Generic Name Dose Route Start Last Admin
Trade Name Freq PRN Reason Stop Dose Admin
Acetaminophen 650 mg 05/14/24 01:29
Acetaminophen 650 Mg Rectal Suppository RECTAL 06/11/24 01:28
Q4HPRN PRN
REYNA, mild pain, or temp >100.4F
Acetaminophen 650 mg 05/14/24 01:29
Acetaminophen 325 Mg Tablet PO 06/11/24 01:28
Q4HPRN PRN
REYNA, mild pain, or temp >100.4F
Albuterol 2 puff 05/14/24 01:29
Albuterol Hfa [90 Mcg/Dose] Inhaler INH
R Q4 PRN
sob/wheezing
Protocol
Apixaban 2.5 mg 05/14/24 08:00 05/14/24 10:39
Apixaban (Eliquis) 5 Mg Tablet PO 06/11/24 07:59 2.5 mg
BID ANGLE Administration
Atorvastatin Calcium 40 mg 05/14/24 18:00
Atorvastatin (Lipitor) 40 Mg Tablet PO 06/11/24 17:59
QPM ANGLE
Ceftriaxone Sodium 1,000 mg 05/14/24 20:00
Ceftriaxone 1000 Mg / 10 Ml Vial IV
Q24H ANGLE
HCTZ/Losartan Potassium 1 tab 05/14/24 18:00
Losartan (100 Mg)/Hydrochlorothiazide (25 Mg) Tablet PO 06/11/24 17:59
QPM ANGLE
Hydralazine HCl 75 mg 05/14/24 08:00 05/14/24 10:38
Hydralazine 25 Mg Tablet PO 06/11/24 07:59 75 mg
BID ANGLE Administration
Sodium Chloride 1,000 mls @ 85 mls/hr 05/13/24 23:30 05/14/24 12:01
Nss IV 1,000 mls
.[id number] ANGLE Administration
Azithromycin 500 mg in 250 mls @ 250 mls/hr 05/14/24 20:00
Zithromax Infusion IV
Q24H ANGLE
Itraconazole 100 mg 05/14/24 18:00
Itraconazole 100 Mg Capsule PO 05/24/24 17:59
QPM ANGLE
Memantine 10 mg 05/14/24 08:00 05/14/24 10:39
Memantine 10 Mg Tablet PO 06/11/24 07:59 10 mg
BID ANGLE Administration
Montelukast Sodium 10 mg 05/14/24 18:00
Montelukast Sodium 10 Mg Tablet PO 06/11/24 17:59
QPM ANGLE
Fluticasone/Salmeterol 2 puff 05/14/24 08:00 05/14/24 08:17
Advair Hfa 230/21 Inhaler INH 06/11/24 07:59 2 puff
R BID ANGLE Administration
Sodium Chloride 0 flush 05/14/24 02:00
Sodium Chloride 0.9% (Flush) Syringe IV 06/11/24 01:59
PER PROTOCOL ANGLE
Sterile Water 10 ml 05/14/24 20:00
Sterile Water For Injection 10 Ml Vial IV 06/11/24 19:59
Q24H ANGLE
NIH Stroke Score
Subsequent NIH Scale
Date of Subsequent NIH Scale: 05/14/24
Time of Subsequent NIH Scale: 09:15
NIH Stroke Score
Level of Consciousness: 0 - Alert
LOC Questions: 0-Answers both correctly
LOC Commands: 0-Performs both correctly
Best Horizontal Gaze: 0-Normal
Visual [place]: 0=Normal, no visual loss
Facial Palsy: 0=Normal, symmetrical
Motor - Right Arm: 0=No drift 10 seconds
Motor - Left Arm: 0=No drift 10 seconds
Motor - Right Le-No drift 5 seconds
Motor - Left Le-No drift 5 seconds
Limb Ataxia: 0-Absent
Sensation: 0-Normal
Best Language: 0-No aphasia
Dysarthria: 0-Normal
Extinction and Inattention: 0-No abnormality
Total Score:: 0
Modified [place] (mRS) Score
Modified [place] Scale (mRS): No symptoms
Score: 0
Alteplase Contraindication
Inclusion and Exclusion criteria reviewed: Yes
Reasons for NON-Tx with Thrombolytics ABSOLUTE Exclusions: Patient taking oral anticoagulant and last dose within 48 hours
IAT Contraindications: Imaging doesn't show large vessel occlusion as cause of stroke

Documented by User: Emiliano Larsen MD 05/14/24 15:28
NIH Stroke Score
NIH Stroke Score
Total Score:: 0
Modified [place] (mRS) Score
Score: 0
--- NOTE | 2024-05-14 10:15 | CON.PUL ---
Consultation
Consultation Request
Date/Time Consultation Requested: 05/14/24
Date/Time Consultation Performed: 05/14/24
Performing Provider: Vandana
Reason for Consultation: Abnl CXR
Medical History
-
History of Present Illness:
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 Per his , he had abrupt change in mental
status in the past 24 hours with confusion and forgetfulness. He has had diagnoses of short-term memory impairment and is on Namenda 10 mg twice daily, notes that this is more of a change than his baseline. Of note, he has had progressive
productive coughing with yellow sputum in the past month. He generally has been on and off prednisone more recently for flare ups of breathing, maintained on 10 mg daily. Has not yet needed biologics in past. He follows with Dr. Mandujano as an
outpatient. Initial chest imaging demonstrating bilateral congestion suggesting possible pneumonia versus edema.
.
Past Medical History
Past Medical History: Other (see list below)
Social History
Tobacco: Non-smoker
Alcohol: None
Drug: None
Family History
Family History: Reviewed & Not Pertinent
Allergies / Home Medications
Allergies
Allergy/AdvReac Type Severity Reaction Status Date / Time
cigarette smoke Allergy Asthma Verified 03/11/24 18:40
exacerbation
mesa Allergy Asthma Verified 03/11/24 18:40
exacerbation
grass pollen Allergy asthma Verified 03/11/24 18:40
exacerbation
pollen extracts Allergy Runny Verified 03/11/24 18:40
nose,
sinus
infections
- seasonal
dogs Allergy asthma Uncoded 03/11/24 18:40
exacerbation
Home Medications
�Medication �Instructions �Recorded �Confirmed �Last Taken �Type
hydralazine 25 mg tablet 75 mg PO BID Blood Pressure 04/25/23 05/13/24 05/12/24 History
memantine 10 mg tablet 10 mg PO BID Neurological Condition 04/25/23 05/13/24 05/12/24 History
montelukast 10 mg tablet 10 mg PO QPM Lung/Breathing Issues 04/25/23 05/13/24 10/02/23 20:00 History
albuterol sulfate 90 mcg/actuation 2 puff inhalation R Q4 PRN 04/26/23 10/03/23 10/03/23 08:00 History
aerosol inhaler sob/wheezing
losartan 100 1 tab PO QPM Blood Pressure 04/26/23 05/13/24 05/12/24 History
mg-hydrochlorothiazide 25 mg tablet
itraconazole 100 mg capsule 100 mg PO QPM 09/20/23 05/13/24 05/12/24 History
apixaban 5 mg tablet (Eliquis) 2.5 mg PO BID 05/13/24 05/13/24 05/12/24 History
fluticasone 500 mcg-salmeterol 50 1 inh inhalation BID 05/13/24 05/13/24 05/12/24 History
mcg/dose blistr powdr for
inhalation (Wixela Inhub)
Review of Systems
-
History Source: Patient
All other systems: Negative unless noted
Vitals / Labs / Diagnostic Testing
Vital Signs
Temp Pulse Resp BP Pulse Ox
98.2 F 88 18 119/51 95
05/14/24 07:50 05/14/24 08:21 05/14/24 08:21 05/14/24 07:50 05/14/24 08:21
Lab Data
05/14/24 07:17
05/13/24 21:14
Laboratory Results
05/13/24
21:14
PT 15.5 H
INR 1.24
APTT 37.3 H
Diagnostic Testing:
Physical Exam
-
HEENT: Normocephalic, Anicteric and Moist Mucous Membranes
Cardiovascular: S1/S2 and Regular Rhythm
Respiratory: Rales and Non-Labored Respirations
GI: Soft, Non Distended and Non Tender
Neurology: Awake, Alert, No Motor Deficits and Other (oriented to self, but somewhat confused with events)
Skin: Warm, Dry and Good Color
General: Comfortable and Other (NAD)
Assessment
-
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 Per his , he had abrupt change in mental
status in the past 24 hours with confusion and forgetfulness. He has had diagnoses of short-term memory impairment and is on Namenda 10 mg twice daily, notes that this is more of a change than his baseline. Of note, he has had progressive
productive coughing with yellow sputum in the past month. He generally has been on and off prednisone more recently for flare ups of breathing, maintained on 10 mg daily. Initial chest imaging demonstrating bilateral congestion suggesting
possible pneumonia versus edema. We are asked for eval.
Impression:
Abnormal CXR, PNA vs edema
Productive cough, x 1 month
Confusion, acute on chronic
Mass-like consolidation
MELVIN
Conditions BARN BOSS:
PE/LLE DVT (adm DH 04/2023) on Eliquis, unprovoked/+fam hx of PE in mother
HTN
HLD
Chronic bronchitis/Asthma: on albuterol HFA, fluticasone/salmeterol (wixela), montelukast, spiriva, prednisone
Mass-like opacity in the right upper lobe has diminished in size dating back to [address] Mandujano
History of aspergillosis/ABPA, diagnosed 2006 at [place], clinical diagnosis
Followed pulmonary (Mohit Muñoz)
Remains on itraconazole (has been on this for 15 years, attempted to stop at one point but developed worsening sx)
On chronic steroids/on and off, now on 10mg daily
Peripheral eosinophilia, improved down to 3.3% from 17.4%��
Bronchiectasis B/L
Pulmonary HTN- mild-moderate, PASP 31-42 at baseline
s/p RHC PA pressure 48, normal cardiac index
Gout
Hypogonadism, on testosterone sc for last one wk BARN BOSS
Nephrolithiasis
Mild short term memory impairment
Nonsmoker
History of melanoma�
Snoring, not yet completed HST
Plan:
O2 protocol as needed, he is 95% on RA
Not on home O2
Prior walk test on RA: 91% at rest, 92% on activity (100 ft): no dyspnea, CP, syncopal symptoms
Extensive pulm history noted above
Has not yet needed biologics in past. He follows with Dr. Mandujano as an outpatient.
states he does better on chronic pred, I will resume 20mg daily dose in speaking with
We discussed need for sputum culture to rule out superimposed infection
Airway clearance continued for bronchiectasis: Acapella valve/IS
Procal elevated
Continue asthma management
Symbicort bid (return to [facility] upon d/c)
Spiriva
Albuterol nebs prn
Guaifenesin
Has not yet needed biologics in past. He follows with Dr. Mandujano as an outpatient.
Prior history of PE/DVT maintained on Eliquis
CTA chest: extensive pulmonary emboli. No CT evidence for right heart strain.
Mass-like opacity in the right upper lobe has diminished in size dating back to 2017.
TTE: normal biventricular function, not unexpected increase in PASP in setting of PE--resolved on repeat testing as OP
Repeat proBNP to r/o CHF
ECHO in past hyperdynamic
Had slight MELVIN, creat 1.4
CXR indicating mass like area, has been noted before on CT
Reports normal colonoscopy 6-7 y ago
Reports negative prostate evaluation 1 y ago
No personal h/o malignancy
Repeat CT imaging while inpatient
Confusion noted, acute on chronic
Has been taking Namenda as OP
Initial CT imaging negative
Snoring was noted in past, has not yet obtained sleep study
DVT prophylaxis-on full anticoagulation
Early nutrition
Early mobilization
D/w Mr Cortes and at bedside
We will follow
Diagnostic Data
CXR 05/13/24- bilateral haziness, layering in fissure suggestive of congestion/cephalization/edema
CT CHEST ION 09/22/23- 1. Significant bronchiectasis with adjacent masslike opacity within the right upper lobe, unchanged in size compared to 04/26/2023, and significantly decreased in size compared to 05/19/2017.
2. Significant bronchiectasis within the left upper lobe, unchanged compared to multiple prior studies including the most distant prior dated 01/26/2017.
3. Innumerable centrilobular nodules within the periphery of the right lower lobe, unchanged compared to the most distant prior CT.
4. Overall, findings are likely reflective of a chronic indolent infectious or inflammatory process. No acute superimposed abnormalities.
5. Cholelithiasis without evidence of acute cholecystitis.
6. Minimal calcification of the LAD. Please correlate with symptoms of and risk factors for coronary artery disease, with further workup as clinically appropriate.
Chest CTA 04-26-23: Extensive pulmonary emboli. No CT evidence for right heart strain. Mass-like opacity in the right upper lobe has diminished in size dating back to 2017. Redemonstration of tree-in-bud pulmonary opacities in the right lower lobe.
These are indicative of small airway disease. Cholelithiasis. 5 mm low-attenuation left thyroid lobe lesion.
L leg doppler US 04-26-23: thrombus in the left femoral, popliteal and peroneal veins
R leg dopper 04-26-23: negative
Exercise ST 04-20-23 CONCLUSION:
1. Nondiagnostic stress test due to failure to achieve target heart rate.
2. [address] depression inferiorly at peak exercise which resolved 1 minute into recovery.
3. Moderate risk study.
4. No prior study for comparison.
LHC/RHC 10/03/23- HEMODYNAMIC DATA
AO: 158/72
LV: 158/17
PCWP: 16
PA: 48/18
RV: 48/14
RA: 9
Oximetry: Ao 96%, PA 75%, cardiac output 5.6, cardiac index 2.8
Normal left ventricular function with EF 61%, no significant CAD
ECHO 09/29/23- Hyperdynamic left ventricular systolic function. LV ejection fraction is 70- 75%. Trace aortic regurgitation. Normal right ventricular size and function. Mild tricuspid regurgitation. Estimated pulmonary artery pressure of 31 mmHg,
assuming a right atrial pressure of 3 mmHg. Compared to 04/27/23: PASP has decreased from 75 mmHg to 31 mmHg.
TTE 04-27-23 CONCLUSIONS: LV ejection fraction is 70-75%, by visual assessment. Grossly normal wall motion. Normal right ventricular size and function. Aortic valve opens normally. Mild aortic regurgitation. Mild tricuspid regurgitation. Estimated
pulmonary artery pressure of 70-75 mmHg. Compared to prior study of 03/24/2023, PASP has increased (previously 42 mmHg).
TTE 03-24-23 CONCLUSIONS: Normal biventricular size and systolic function without regional wall motion abnormality. Estimated LVEF 60-65%. Mild concentric left ventricular hypertrophy. Mild aortic regurgitation. Mild tricuspid regurgitation. Mildly
elevated PASP. Estimated pulmonary artery pressure of 42 mmHg. Mildly dilated aortic root (SOV 4.1cm). Compared to 07/11/20: prior SOV measurement was 4.3cm. PASP was unable to be measured on prior study.
PFT 03/10/23: FVC 3.73L 87%, FEV1 2.2L 71%, ratio 59. TLC 7.78L 109%, DLCO 68% --moderate obstruction, mild diffusion impairment
02/21/24 FEV1 2.52L 82%--mild obstruction
-----
Total time spent on this consultation __81__ includes review of history, physical exam, medications, laboratory data, personal review of imaging, extensive review of outpatient records, discussion with care team and respiratory therapy.
--- NOTE | 2024-05-14 10:30 | PTOTSP ---
RESERVATIONIST Evaluations
Clinical bedside swallowing evaluation without signs of oral/pharyngeal dysphagia. Consider video swallow study if concerned for silent aspiration (as this cannot be ruled out bedside) given risk factors (i.e., dementia, concern for possible
stroke, GERD) and current R PNA.
Patient also presents with signs concerning for primarily expressive aphasia (new per patient report) and a cognitive linguistic impairment (chronic per chart review). Quick Aphasia Battery Form 1 score = 8.32 with signs of verbal expressive
deficits greater than written expressive deficits and mild changes to auditory comprehension (sentence level, may be impacted by STM).
Recommend:
1. Regular, Thin Liquids
2. General aspiration and reflux precautions
3. Continued language and cognitive evaluation/therapy at the acute care level and after D/C at this time.
[2024-05-14] MEDS: APRESOLINE 75 MG PO ×2 (10:38→20:12)
[2024-05-14] MEDS: ELIQUIS 2.5 MG PO ×2 (10:39→20:12)
[2024-05-14] MEDS: NAMENDA 10 MG PO ×2 (10:39→20:12)
--- NOTE | 2024-05-14 12:25 | CM ---
Patient seen at bedside with . Case consult completed.
Discussed role of CM.
DX: Amnesia, RLL pneumonia
MRI today - [facility] recommend video swallow if concerned about silent aspiration.
Await therapy notes.
Patient lives at home with in a 2 story home. 0 steps to enter. states bed & bath on 1st floor.
PLOF: Independent uses no assistive device, driving
No DME in home.
states no food/transportation/utilities/housing insecurities.
Has not had home health or Rehab in the past.
PCP: Nahomi Hogan
Pharmacy: [facility]
PLAN: Await PT/OT recommendations for needs. MRI pending.
[2024-05-14 13:48] LABS: Blood Urea Nitrogen 28 mg/dl (9-20); Calcium 8.9 mg/dl (8.4-10.2); Carbon Dioxide 24 mmol/L (22-30); Chloride 106 mmol/L (98-107); Estimated Creatinine Clearance 60 ml/min; Glucose 157 mg/dl (70-99); Potassium 3.7 mmol/L (3.5-5.1); Sodium 139 mmol/L (135-145); eGFR > 60.00
[2024-05-14 14:23] LABS: NT-proBNP 533 pg/ml
[2024-05-14] MEDS: DELTASONE 20 MG PO (15:07)
[2024-05-14] MEDS: ROBITUSSIN 100 MG PO (15:49)
[2024-05-14 16:12] LABS: TSH Reflex To Free T4 1.04 uIU/ml (0.47-4.68)
[2024-05-14 16:47] LABS: Folate 4.7 ng/ml (2.76-20); Vitamin B12 314 pg/ml (239-931)
[2024-05-14 17:00] LABS: Urine Albumin Negative (Neg - Trace); Urine Bilirubin Negative (Negative); Urine Character Clear (Clear); Urine Color Yellow; Urine Glucose Negative (Negative); Urine Ketone Negative (Negative); Urine Leukocyte Negative (Negative); Urine Nitrite Negative (Negative); Urine Occult Blood Negative (Negative); Urine Specific Gravity 1.015 (<1.030); Urine Urobilinogen Negative (Neg - 1+)
[2024-05-14] MEDS: SPORANOX 100 MG PO (17:58)
[2024-05-14] MEDS: HYZAAR 100-25 TABLET 1 TAB PO (17:58)
[2024-05-14] MEDS: SINGULAIR 10 MG PO (17:58)
[2024-05-14] MEDS: LIPITOR 40 MG PO (17:58)
[2024-05-14] MEDS: ROCEPHIN 1000 MG IV (20:13)
[2024-05-14] MEDS: STERILE WATER FOR INJECTION 10 ML IV (20:13)
[2024-05-14] MEDS: ZITHROMAX INFUSION 250 IV (20:13)
[2024-05-15 03:15] VITALS: BP 115/47
[2024-05-15 07:00] VITALS: BP 107/52
[2024-05-15 07:04] LABS: % Basophils 0.3 % (0-2); % Immature Granulocytes 0.6 % (0-0.5); % Lymphocytes 12.6 % (20.5-51.1); % Monocytes 7.6 % (1.7-9.3); % Neutrophils 78.9 % (42.2-75.2); Absolute Lymphocytes 0.9 10^3/uL (1.2-3.4); Absolute Monocytes 0.5 10^3/uL (0.1-0.6); Absolute Neutrophils 5.5 10^3/uL (1.4-6.5); Hematocrit 33.1 % (39.0-52.0); Hemoglobin 11.2 g/dL (13.0-18.0); Mean Corp Hgb Conc. 33.8 g/dL (33.0-37.0); Mean Corpuscular Hgb 34.5 pg (27.0-31.0); Mean Corpuscular Volume 101.8 fL (80.0-94.0); Mean Platelet Volume 9.5 fL (7.4-10.4); Nucleated Red Blood Cells % 0 % (-); Platelet Count 163 10^3/uL (130-400); Red Blood Cell Count 3.25 10^6/uL (4.70-6.10)
[2024-05-15 07:18] LABS: Blood Urea Nitrogen 27 mg/dl (9-20); Calcium 9.1 mg/dl (8.4-10.2); Carbon Dioxide 22 mmol/L (22-30); Chloride 110 mmol/L (98-107); Estimated Creatinine Clearance 66 ml/min; Glucose 143 mg/dl (70-99); Potassium 4.1 mmol/L (3.5-5.1); Sodium 141 mmol/L (135-145); eGFR > 60.00
[2024-05-15] MEDS: APRESOLINE PO ×2 (08:08→19:50)
[2024-05-15] MEDS: DELTASONE 20 MG PO (08:12)
[2024-05-15] MEDS: NAMENDA 10 MG PO ×2 (08:12→19:59)
[2024-05-15] MEDS: ELIQUIS 2.5 MG PO ×2 (08:12→19:58)
[2024-05-15 08:16] LABS: Glycohemoglobin (HgbA1c) 5.6 % (4.0-5.6)
[2024-05-15] MEDS: ADVAIR HFA 230/21 MCG INHALER INH (08:22)
--- NOTE | 2024-05-15 08:53 | W.PN.HOSP.TC ---
Addendum entered and electronically signed by Gabe Ospina MD 05/15/24 18:29:
Sepsis, POA
CKD 3a only
Original Note:
Today's Communication/Plan
-
IV antibiotics. Pulmonary eval
Assessment / Plan
Assessment / Plan
Physical exam:
General: Acute on chronically ill
HEENT: Normocephalic, Atraumatic and Moist Mucous Membranes
Respiratory: Bilateral scattered rhonchi; Negative Wheezes, or Rales
Cardiac: Regular Rhythm and S1/S2
GI: Soft, Nontender and Nondistended
Musculoskeletal: No Clubbing, No Cyanosis and No Edema
Neuro: Awake, Alert and Oriented, no gross neurological deficits appreciated today. Generalized weakness.
Psych: Calm
A/P:
Toxic metabolic encephalopathy:
Likely related to pneumonia. Ruled out stroke.
He does have underlying cognitive deficits/memory impairment.
Continue Eliquis 2.5 mg twice daily and atorvastatin 40 mg nightly
MRI of the brain no acute stroke or acute abnormalities.
Seen CT scan of the head and brain MRI no acute intracranial abnormalities
Restarted antibiotics on 05/14
Continue Namenda
Discussed with neurology today
Discussed with at bedside today on 05/15
PT OT recommend outpatient therapy
Speech therapy did VSE and unremarkable.
Pneumonia and rule out lung mass:
Seen CT scan of the chest and findings consistent with pneumonia and cannot rule out mass.
Pulmonary consulted and will follow up further recommendations
Continue IV Rocephin and azithromycin
Off IV fluids
Obtained twelve-lead EKG and QTc is not prohibitive
WBC trending down from 16 to 7 today
Chronic pulmonary aspergillosis/asthma:
On itraconazole on a 100 mg p.o. nightly
On steroids outpatient recently. Pulmonary restarted prednisone 20 mg p.o. daily.
DVT/PE:
Continue Eliquis
MELVIN on CKD stage IIIa:
Received IV fluids but now off.
Creatinine 1.0 today from 1.4. BUN is coming down as well.
Electrolytes within normal limits today.
Avoid nephrotoxic
Monitor renal function
Hypertension:
Relatively hypotensive so hold antihypertensives today and restart when blood pressure appropriate.
Continue oral hydralazine, ARB, HCTZ when appropriate.
Monitor blood pressure adjust medications accordingly
DVT prophylaxis-Eliquis
CODE STATUS-full code
Anticipated Discharge: 24 - 48 hours
Subjective/Interval History
-
Date of Service: May 15, 2024
Patient more alert today. Less shortness of breath and less cough. Afebrile. No chest pain
Objective Data
-
Labs:
Laboratory Results
05/15/24
06:35
WBC 7.0
Hgb 11.2 L
Hct 33.1 L
Plt Count 163
Sodium 141
Potassium 4.1
Chloride 110 H
Carbon Dioxide 22
BUN 27 H
Creatinine 1.0
Glucose 143 H
Calcium 9.1
Vital Signs:
Vital Signs
Temp Pulse Resp BP Pulse Ox
97.9 F 59 16 102/50 95
05/15/24 03:15 05/15/24 03:15 05/15/24 03:15 05/15/24 08:08 05/15/24 03:15
I&O
05/14/24 05/15/24 05/16/24
06:59 06:59 06:59
Intake Total 1959 / 1959
Output Total 875 / 875
Balance 1085 / 1085
--- NOTE | 2024-05-15 09:12 | W.PN.PUL3 ---
Today's Communication / Plan
-
CT reviewed, mucus impaction/sputum negative, likely ineffective airway clearance
We will add clearance measures, nebs
Ongoing w/u for MS changes
PT/OT, he is stable on RA
Can likely narrow abx considering culture negative
Assessment
-
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 Per his , he had abrupt change in mental
status in the past 24 hours with confusion and forgetfulness. He has had diagnoses of short-term memory impairment and is on Namenda 10 mg twice daily, notes that this is more of a change than his baseline. Of note, he has had progressive
productive coughing with yellow sputum in the past month. He generally has been on and off prednisone more recently for flare ups of breathing, maintained on 10 mg daily. Initial chest imaging demonstrating bilateral congestion suggesting
possible pneumonia versus edema. We are asked for eval.
Impression:
Abnormal CXR, PNA vs edema
Productive cough, x 1 month
Confusion, acute on chronic
Mass-like consolidation
MELVIN
Conditions CLINIC OFFICE MANAGER:
PE/LLE DVT (adm DH 04/2023) on Eliquis, unprovoked/+fam hx of PE in mother
HTN
HLD
Chronic bronchitis/Asthma: on albuterol HFA, fluticasone/salmeterol (wixela), montelukast, spiriva, prednisone
Mass-like opacity in the right upper lobe has diminished in size dating back to [address] Mandujano
History of aspergillosis/ABPA, diagnosed 2006 at [place], clinical diagnosis
Followed pulmonary (Mohit Muñoz)
Remains on itraconazole (has been on this for 15 years, attempted to stop at one point but developed worsening sx)
On chronic steroids/on and off, now on 10mg daily
Peripheral eosinophilia, improved down to 3.3% from 17.4%��
Bronchiectasis B/L
Pulmonary HTN- mild-moderate, PASP 31-42 at baseline
s/p RHC PA pressure 48, normal cardiac index
Gout
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
Nephrolithiasis
Mild short term memory impairment
Nonsmoker
History of melanoma�
Snoring, not yet completed HST
Plan:
O2 protocol as needed, he is 95% on RA
Not on home O2
Prior walk test on RA: 91% at rest, 92% on activity (100 ft): no dyspnea, CP, syncopal symptoms
Extensive pulm history noted above
Has not yet needed biologics in past. He follows with Dr. Mandujano as an outpatient.
states he does better on chronic pred, I will resume 20mg daily dose in speaking with
We discussed need for sputum culture to rule out superimposed infection
Airway clearance continued for bronchiectasis: Acapella valve/IS
Procal elevated
Sputum culture negative to date
CT obtained showing improvement in several areas of consolidation over hilum but there is new consolidation at R base
This indicates ineffective airway clearance and likely mucus impaction
Sputum culture is negative now
Continue asthma management
Symbicort bid (return to [facility] upon d/c)
Spiriva
Albuterol nebs prn
Guaifenesin
Has not yet needed biologics in past. He follows with Dr. Mandujano as an outpatient.
Prior history of PE/DVT maintained on Eliquis
CTA chest: extensive pulmonary emboli. No CT evidence for right heart strain.
Mass-like opacity in the right upper lobe has diminished in size dating back to 2017.
TTE: normal biventricular function, not unexpected increase in PASP in setting of PE--resolved on repeat testing as OP
Repeat proBNP to r/o CHF
ECHO in past hyperdynamic
Had slight MELVIN, creat 1.4
CXR indicating mass like area, has been noted before on CT
Reports normal colonoscopy 6-7 y ago
Reports negative prostate evaluation 1 y ago
No personal h/o malignancy
Repeat CT imaging while inpatient
Confusion noted, acute on chronic
Has been taking Namenda as OP
Initial CT imaging negative, MRI showing possible angiopathy
Snoring was noted in past, has not yet obtained sleep study
DVT prophylaxis-on full anticoagulation
Early nutrition
Early mobilization
D/w Mr Cortes, spoke to /updated on phone today
We will follow
Diagnostic Data
CXR 05/13/24- bilateral haziness, layering in fissure suggestive of congestion/cephalization/edema
CT Chest 05/14/24- There is significant masslike opacities with associated atelectasis within the right greater than left upper lobes which appears slightly increased anteriorly on the right and overall stable on the left. There are new nodular
consolidations with surrounding groundglass opacities within the right greater than left bilateral lower lobes and right middle lobe, likely representing multifocal pneumonia.
CT CHEST ION 09/22/23- 1. Significant bronchiectasis with adjacent masslike opacity within the right upper lobe, unchanged in size compared to 04/26/2023, and significantly decreased in size compared to 05/19/2017.
2. Significant bronchiectasis within the left upper lobe, unchanged compared to multiple prior studies including the most distant prior dated 01/26/2017.
3. Innumerable centrilobular nodules within the periphery of the right lower lobe, unchanged compared to the most distant prior CT.
4. Overall, findings are likely reflective of a chronic indolent infectious or inflammatory process. No acute superimposed abnormalities.
5. Cholelithiasis without evidence of acute cholecystitis.
6. Minimal calcification of the LAD. Please correlate with symptoms of and risk factors for coronary artery disease, with further workup as clinically appropriate.
Chest CTA 04-26-23: Extensive pulmonary emboli. No CT evidence for right heart strain. Mass-like opacity in the right upper lobe has diminished in size dating back to 2016. Redemonstration of tree-in-bud pulmonary opacities in the right lower lobe.
These are indicative of small airway disease. Cholelithiasis. 5 mm low-attenuation left thyroid lobe lesion.
L leg doppler US 04-26-23: thrombus in the left femoral, popliteal and peroneal veins
R leg dopper 04-26-23: negative
Exercise ST 04-20-23 CONCLUSION:
1. Nondiagnostic stress test due to failure to achieve target heart rate.
2. [address] depression inferiorly at peak exercise which resolved 1 minute into recovery.
3. Moderate risk study.
4. No prior study for comparison.
LHC/RHC 10/03/23- HEMODYNAMIC DATA
AO: 158/72
LV: 158/17
PCWP: 16
PA: 48/18
RV: 48/14
RA: 9
Oximetry: Ao 96%, PA 75%, cardiac output 5.6, cardiac index 2.8
Normal left ventricular function with EF 61%, no significant CAD
ECHO 09/29/23- Hyperdynamic left ventricular systolic function. LV ejection fraction is 70- 75%. Trace aortic regurgitation. Normal right ventricular size and function. Mild tricuspid regurgitation. Estimated pulmonary artery pressure of 31 mmHg,
assuming a right atrial pressure of 3 mmHg. Compared to 04/27/23: PASP has decreased from 75 mmHg to 31 mmHg.
TTE 04-27-23 CONCLUSIONS: LV ejection fraction is 70-75%, by visual assessment. Grossly normal wall motion. Normal right ventricular size and function. Aortic valve opens normally. Mild aortic regurgitation. Mild tricuspid regurgitation. Estimated
pulmonary artery pressure of 70-75 mmHg. Compared to prior study of 03/24/2023, PASP has increased (previously 42 mmHg).
TTE 03-24-23 CONCLUSIONS: Normal biventricular size and systolic function without regional wall motion abnormality. Estimated LVEF 60-65%. Mild concentric left ventricular hypertrophy. Mild aortic regurgitation. Mild tricuspid regurgitation. Mildly
elevated PASP. Estimated pulmonary artery pressure of 42 mmHg. Mildly dilated aortic root (SOV 4.1cm). Compared to 07/11/20: prior SOV measurement was 4.3cm. PASP was unable to be measured on prior study.
PFT 03/10/23: FVC 3.73L 87%, FEV1 2.2L 71%, ratio 59. TLC 7.78L 109%, DLCO 68% --moderate obstruction, mild diffusion impairment
02/21/24 FEV1 2.52L 82%--mild obstruction
-----
Total time spent on this encounter __52__ includes review of history, physical exam, medications, laboratory data, personal review of imaging, extensive review of outpatient records, discussion with care team and respiratory therapy.
Subjective Data
-
Date of Service:
Date of Service: May 15, 2024
Chief Complaint: Pulmonary Follow Up
Subjective:
No acute events ON
Remains stable on RA
Cough but not effective
Objective Data
Data Reviewed
Vital Signs / I&O / Oxygen:
Vital Signs
Temp Pulse Resp BP Pulse Ox
97.9 F 59 16 102/50 95
05/15/24 03:15 05/15/24 03:15 05/15/24 03:15 05/15/24 08:08 05/15/24 03:15
Intake and Output
05/14/24 05/15/24 05/16/24
06:59 06:59 06:59
Intake Total 1959 / 1959
Output Total 875 / 875
Balance 1085 / 1085
SaO2 95
Physical Exam
General: Comfortable and Other (NAD)
HEENT: Normocephalic, Anicteric and Moist Mucous Membranes
Cardiovascular: S1-S2 and Regular Rhythm
Respiratory: Crackles and Non-Labored Respirations
GI: Soft, Non Distended and Non Tender
Neurology: Awake, Alert, Oriented, AO x 3 and No Motor Deficits
Skin: Warm, Dry and Good Color
Labs/Micro/Reports
Lab Data
05/15/24 06:35
05/15/24 06:35
Microbiology
05/14/24 12:06 Sputum Gram Stain - Preliminary
--- NOTE | 2024-05-15 09:15 | W.PN.NEURO.1 ---
Addendum entered and electronically signed by Melissa Spencer, 05/15/24 16:03:
Should see a vascular neurologist as an outpatient given possibility of ?cerebral amyloid angiopathy on imaging; for now ok to continue Eliquis given high risk of PE/DVT and lack of any prior hemorrhage on imaging.
Addendum entered and electronically signed by Melissa Spencer, 05/15/24 15:49:
Studies reviewed.
I have personally examined the patient. I agree with the SPEECH INSTRUCTOR's Note.
My addenda: 73 year-old male with a PMH of cognitive impairment, PT/DVT on Eliquis and chronic pulmonary aspergillosis and asthma with an episode of confusion; mental status has improved significantly but he is not quite back to baseline yet.
Follows with Dr. Ledbetter at [facility] in [place].
Reviewed MRI brain findings with patient and his . Ok Reviewed that this was most likely due to TME d/t PNA. Agree with plan as documented below. Will f/u with Dr. Ledbetter as an outpatient. Neurology is signing off. Please call with any
further questions.
Original Note:
Today's Communication / Plan
-
.
Neuro Assessment/Plan
Assessment
This is a 73-year-old left-handed male with a PMH of Alzheimer's disease, b/l PE and LLE DVT (04/2023) on Eliquis, HTN, thyroid disorder, chronic pulmonary aspergillosis, and asthma who presented to on 05/13/24 with report of change in mental
status, profoundly worsened baseline confusion.
-CTA Head/Neck 05/13/24: No significant arterial stenosis. No aneurysm. There is similar appearance of the masslike consolidation with bronchiectasis within the bilateral upper lobes. There are additional foci of bronchiectasis with areas of likely
mucous plugging.
-MRI brain 05/15/24: No acute intracranial abnormality noted. Stable chronic changes which may reflect cerebral amyloid angiopathy.
I. Likely TME in the setting of RLL pneumonia vs edema likely exacerbating underlying cognitive impairment.
II. MRI brain negative for stroke, symptoms not supportive of TIA. Suggestive of amyloid angiopathy, no evidence of microhemorrhage.
III. Low concern for seizure.
IV. Alzheimer's disease.
Plan
-Okay to continue home Eliquis for hx PE/DVT.
-Goal normotension.
-Continue home Namenda.
-Infection workup/treatment per primary team.
-Neurological checks per unit guidelines. Okay to discontinue NIHSS.
-Provide patient with a stroke education packet.
-Goal normoglycemia, hbA1c is 5.6.
-DVT prophylaxis with OAC.
-ST evaluation.
-Patient should follow-up with Dr. Ledbetter as soon as possible, can consider candidacy for disease modifying treatments for Alzheimer disease as an outpatient.
Subjective/Objective
Subjective Data
Date of Service: May 15, 2024
No acute events overnight. Patient denies any headache, dizziness, vision changes, speech/swallow difficulty, numbness, weakness, chest pain, palpitations, and shortness of breath. He continues with his mostly nonproductive, frequent cough.
Objective Data
Vital Signs
Temp Pulse Resp BP Pulse Ox
97.9 F 59 16 102/50 95
05/15/24 03:15 05/15/24 03:15 05/15/24 03:15 05/15/24 08:08 05/15/24 03:15
Lab Results
05/15/24 06:35
05/15/24 06:35
PT 15.5 Sec (11.4-14.6) H 05/13/24 21:14
INR 1.24 05/13/24 21:14
APTT 37.3 Sec (23.4-35.0) H 05/13/24 21:14
Sodium 141 mmol/L (135-145) 05/15/24 06:35
Potassium 4.1 mmol/L (3.5-5.1) 05/15/24 06:35
BUN 27 mg/dl (9-20) H 05/15/24 06:35
Glucose 143 mg/dl (70-99) H 05/15/24 06:35
Calcium 9.1 mg/dl (8.4-10.2) 05/15/24 06:35
Fyr-A-Lnbckvivqoq Pept 533 pg/ml 05/14/24 07:17
LDL Cholesterol, Calc 30 mg/dl 05/14/24 07:17
Vitamin B12 314 pg/ml (239-931) 05/14/24 11:06
Patient Allergies
cigarette smoke Allergy (Verified 03/11/24 18:40)
Asthma exacerbation
mesa Allergy (Verified 03/11/24 18:40)
Asthma exacerbation
grass pollen Allergy (Verified 03/11/24 18:40)
asthma exacerbation
pollen extracts Allergy (Verified 03/11/24 18:40)
Runny nose, sinus infections - seasonal
dogs Allergy (Uncoded 03/11/24 18:40)
asthma exacerbation
Review of Systems
-
History Source: Patient
EENT: Negative Blurry Vision, Decreased Vision or Swallowing Difficulty
Respiratory: Cough; Negative Trouble Breathing
Cardiac: Negative Chest Pain or Palpitations
Abdomen/GI: Negative Nausea
Neuro: Negative Dizzy, Headache, Weakness, Numbness, Ataxia, Tremors or Speech Problem
Physical Exam
-
General: No Apparent Distress
Eyes: No Ptosis and PERRLA
HEENT: Normocephalic and Atraumatic
Neck: Full Range of Motion
Respiratory: No Dyspnea
GI: Non-distended
Skin: Unremarkable
Extremities: No Clubbing, No Cyanosis and No Edema
Extended Neurological Exam
Mood & Affect: Mood Unremarkable and Affect Unremarkable
Attention Span & Concentration: Awake, Alert and Interactive
Memory: Reduced (AAOx3, poor historian, very forgetful)
Tremor: Hand Tremor Absent and Head Tremor Absent
Involuntary Movement: None
Speech: Quality Unremarkable, Quantity Unremarkable and Rate of Production Unremarkable
Cranial Nerve II: Left Eye: Pupillary Reactivity Unremarkable, Pupillary Size Unremarkable and Visual [place] Intact
Cranial Nerve II: Right Eye: Pupillary Reactivity Unremarkable, Pupillary Size Unremarkable and Visual [place] Intact
Cranial Nerves III, IV, : Extraocular Movement: Extraocular Movement Full in all Directions
Cranial Nerve VII: Facial Symmetry: Normal Facial Symmetry
Cranial Nerve VIII: Hearing: Unremarkable Hearing to Normal Conversational Volume
Cranial Nerve XII: Tongue Protusion: Midline
Muscle Strength, Overall: Full Throughout
Muscle Bulk & Tone: Bulk Unremarkable and Tone Unremarkable
Pronator Drift: No Drift in Upper Extremities and No Drift in Lower Extremities
Touch Sensation: Double Simultaneous Stimulation Unremarkable
Coordination: Oxtcso-lssl-ucvbce Testing Unremarkable
Gait & Station: Up from Seated Without Problem
Data Reviewed
-
CT Head: Report Reviewed and Image Reviewed
MRI Head: Report Reviewed and Image Reviewed
Labs: Report Reviewed
Lipid Profile: Report Reviewed
HgbA1C: Report Reviewed
Reviewed with: Physician, Patient and Family
Medications
-
Active Medications
Generic Name Dose Route Start Last Admin
Trade Name Freq PRN Reason Stop Dose Admin
Acetaminophen 650 mg 05/14/24 01:29
Acetaminophen 650 Mg Rectal Suppository RECTAL 06/11/24 01:28
Q4HPRN PRN
REYNA, mild pain, or temp >100.4F
Acetaminophen 650 mg 05/14/24 01:29
Acetaminophen 325 Mg Tablet PO 06/11/24 01:28
Q4HPRN PRN
REYNA, mild pain, or temp >100.4F
Albuterol 2 puff 05/14/24 01:29
Albuterol Hfa [90 Mcg/Dose] Inhaler INH
R Q4 PRN
sob/wheezing
Protocol
Apixaban 2.5 mg 08/26/24 08:00 05/15/24 08:12
Apixaban (Eliquis) 5 Mg Tablet PO 06/11/24 07:59 2.5 mg
BID ANGLE Administration
Atorvastatin Calcium 40 mg 05/14/24 18:00 05/14/24 17:58
Atorvastatin (Lipitor) 40 Mg Tablet PO 06/11/24 17:59 40 mg
QPM ANGLE Administration
Ceftriaxone Sodium 1,000 mg 05/14/24 20:00 05/14/24 20:13
Ceftriaxone 1000 Mg / 10 Ml Vial IV 1,000 mg
Q24H ANGLE Administration
Guaifenesin 100 mg 05/14/24 15:13 05/14/24 15:49
Guaifenesin Oral Solution (200 Mg/10 Ml) Cup PO 06/11/24 15:12 100 mg
Q4HPRN PRN Administration
cough
HCTZ/Losartan Potassium 1 tab 05/14/24 18:00 05/14/24 17:58
Losartan (100 Mg)/Hydrochlorothiazide (25 Mg) Tablet PO 06/11/24 17:59 1 tab
QPM ANGLE Administration
Hydralazine HCl 75 mg 05/14/24 08:00 05/15/24 08:08
Hydralazine 25 Mg Tablet PO 06/11/24 07:59 Not Given
BID ANGLE
Azithromycin 500 mg in 250 mls @ 250 mls/hr 05/14/24 20:00 05/14/24 20:13
Zithromax Infusion IV 250 mls
Q24H ANGLE Administration
Itraconazole 100 mg 05/14/24 18:00 05/14/24 17:58
Itraconazole 100 Mg Capsule PO 05/24/24 17:59 100 mg
QPM ANGLE Administration
Memantine 10 mg 05/14/24 08:00 05/15/24 08:12
Memantine 10 Mg Tablet PO 06/11/24 07:59 10 mg
BID ANGLE Administration
Montelukast Sodium 10 mg 05/14/24 18:00 05/14/24 17:58
Montelukast Sodium 10 Mg Tablet PO 06/11/24 17:59 10 mg
QPM ANGLE Administration
Prednisone 20 mg 05/14/24 15:00 05/15/24 08:12
Prednisone 20 Mg Tablet PO 06/11/24 14:59 20 mg
DAILY ANGLE Administration
Fluticasone/Salmeterol 2 puff 05/14/24 08:00 05/15/24 08:22
Advair Hfa 230/21 Inhaler INH 06/11/24 07:59 Not Given
R BID ANGLE
Sodium Chloride 0 flush 05/14/24 02:00
Sodium Chloride 0.9% (Flush) Syringe IV 06/11/24 01:59
PER PROTOCOL ANGLE
Sterile Water 10 ml 05/14/24 20:00 05/14/24 20:13
Sterile Water For Injection 10 Ml Vial IV 06/11/24 19:59 10 ml
Q24H ANGLE Administration
Home Medications
�Medication �Instructions �Recorded
hydralazine 25 mg tablet 75 mg PO BID Blood Pressure 04/25/23
memantine 10 mg tablet 10 mg PO BID Neurological Condition 04/25/23
montelukast 10 mg tablet 10 mg PO QPM Lung/Breathing Issues 04/25/23
albuterol sulfate 90 mcg/actuation 2 puff inhalation R Q4 PRN 04/26/23
aerosol inhaler sob/wheezing
losartan 100 1 tab PO QPM Blood Pressure 04/26/23
mg-hydrochlorothiazide 25 mg tablet
itraconazole 100 mg capsule 100 mg PO QPM 09/20/23
apixaban 5 mg tablet (Eliquis) 2.5 mg PO BID 05/13/24
fluticasone 500 mcg-salmeterol 50 1 inh inhalation BID 05/13/24
mcg/dose blistr powdr for
inhalation (Wixela Inhub)
--- NOTE | 2024-05-15 09:29 | PTOTSP ---
Video Swallow Study
Summary: Oral/pharyngeal stages of swallowing within functional limits. No penetration, aspiration, or significant pharyngeal retention noted.
Recommend:
1. Regular, Thin Liquids
2. Medications as best tolerated
3. General aspiration and reflux precautions
4. No further dysphagia therapy warranted. Will follow up for further language and cognitive linguistic testing/therapy as appropriate.
[2024-05-15 11:00] VITALS: BP 117/58
--- NOTE | 2024-05-15 11:57 | CM ---
Patient seen at bedside with .
therapy recommends outpatient therapy
Patient had MRI briain today-no acute intracranial abnormality noted.
Video swallow performed.
PLAN: PT recommending outpatient therapy. Will need script upon discharge.
[2024-05-15] MEDS: MUCOMYST 10% 2 ML INH ×2 (13:38→21:09)
[2024-05-15] MEDS: VENTOLIN NEBULES 2.5 MG INH ×2 (13:38→21:09)
[2024-05-15 15:00] VITALS: BP 132/56
--- NOTE | 2024-05-15 15:05 | PN.CDI ---
CDI
- -
CDI:
Physician Documentation Request
Admit Date: 05/13/24 23:55
Dear Doctor Bhavesh,
Please review the following and provide your response in the progress notes.
Clinical Indicators:
Pt admitted with RLL PNA/ TME/Aphasia/On IV Rocephin/ Azithromycin
On admission WBC 16, Respirations 27
Please clarify which of the following most accurately describes the status of the patient's infection:
Sepsis-POA
- Systemic manifestations of infection, with 2 or more SIRS criteria which include:
- Fever >100.4 degrees F or hypothermia < 96.8 degrees F
- Leukocytosis - WBC > 12,000 or leukopenia - WBC < 4,000 or > 10% bands
- Tachycardia > 90 beats per minute
- Tachypnea - RR > 20 breaths per minute or PaCO2 , 32mmHg
Source: Merck Manual 2013
Pneumonia Only Without Systemic Illness
- indicate the site/source, such as UTI, pneumonia etc.
Other
Use of terms such as suspected, likely, concern for, or probable (associated with a specific diagnosis that is being evaluated, monitored, or treated as if it exists) are acceptable and can be coded in the inpatient setting, when documented at the
time of discharge.
Thank you,
Silvana Sampson RN
CDI Specialist
[place] [facility]
Please use your independent medical judgment in providing your response.
--- NOTE | 2024-05-15 15:08 | PN.CDI ---
CDI
- -
CDI:
Physician Documentation Request
Admit Date: 05/13/24 23:55
Dear Doctor Bhavesh,
Please review the following and provide your response in the progress notes.
Clinical Indicators:
Documentation in the record on __05/14& 05/15 progress notes ____ includes the diagnosis of MELVIN on CKD 3a. The following clinical information was noted in the record:
Documented per H&P, ' CKD 3 A Creat 1.4 baseline 1. 1�1.3...'
05/13/24 05/14/24 05/15/24
21:14 11:06 06:35
Creatinine 1.4 H 1.1 1.0
Bases on the above information and the clinical indicators in the record, please clarify in the Progress Notes which of the following most accurately represents the patient's renal status:
CKD 3a only
MELVIN only NO CKD
Other ( please specify)
Criteria for MELVIN*
1 Increase in serum creatinine by > or = to 0.3 mg/dL (> or = to 26.5 micromol/L) within 48 hours, OR
2 Increase in serum creatinine to > or = to 1.5 times baseline, which is known or presumed to have occurred within 7 days, OR
3 Urine volume < 0.5 nL/kg/hour for six hours
Stages of Chronic Kidney Disease*
Level Description GFR
G1 Normal or High >90
G2 Mildly decreased 60-89
G3a Mildly to moderately decreased 45-59
G3b Moderately to severely decreased 30-44
G4 Severely decreased 15-29
G5 Kidney failure <15
Use of terms such as suspected, likely, concern for, or probable (associated with a specific diagnosis that is being evaluated, monitored, or treated as if it exists) are acceptable and can be coded in the inpatient setting, when documented at the
time of discharge.
Thank you,
Silvana Sampson RN
CDI Specialist
[place] [facility]
Please use your independent medical judgment in providing your response.
*Source: Kidney Disease: Improving Global Outcomes (KDIGO) 2012
[2024-05-15] MEDS: HYZAAR 100-25 TABLET PO (17:06)
[2024-05-15] MEDS: LIPITOR 40 MG PO (17:16)
[2024-05-15] MEDS: SINGULAIR 10 MG PO (17:16)
[2024-05-15] MEDS: SPORANOX 100 MG PO (17:16)
[2024-05-15 19:43] VITALS: BP 113/50
[2024-05-15] MEDS: STERILE WATER FOR INJECTION 10 ML IV (19:59)
[2024-05-15] MEDS: ROCEPHIN 1000 MG IV (19:59)
[2024-05-15] MEDS: MUCINEX 600 MG PO (19:59)
[2024-05-15] MEDS: ZITHROMAX INFUSION 250 IV (20:00)
[2024-05-15] MEDS: ADVAIR HFA 230/21 MCG INHALER 2 PUFF INH (21:08)
[2024-05-15 22:59] VITALS: BP 112/56
[2024-05-16 03:47] VITALS: BP 103/46
[2024-05-16 07:03] LABS: Hematocrit 30.5 % (39.0-52.0); Hemoglobin 10.5 g/dL (13.0-18.0)
[2024-05-16 07:21] LABS: Blood Urea Nitrogen 21 mg/dl (9-20); Calcium 9.2 mg/dl (8.4-10.2); Carbon Dioxide 23 mmol/L (22-30); Chloride 111 mmol/L (98-107); Estimated Creatinine Clearance 73 ml/min; Glucose 131 mg/dl (70-99); Potassium 3.9 mmol/L (3.5-5.1); Sodium 144 mmol/L (135-145); eGFR > 60.00
[2024-05-16 07:56] VITALS: BP 125/58
[2024-05-16] MEDS: ADVAIR HFA 230/21 MCG INHALER 2 PUFF INH ×2 (08:13→20:09)
[2024-05-16] MEDS: MUCOMYST 10% 2 ML INH ×3 (08:14→20:09)
[2024-05-16] MEDS: VENTOLIN NEBULES 2.5 MG INH ×3 (08:14→20:09)
[2024-05-16] MEDS: DELTASONE 20 MG PO (08:28)
[2024-05-16] MEDS: APRESOLINE 75 MG PO (08:28)
[2024-05-16] MEDS: MUCINEX 600 MG PO ×2 (08:28→20:28)
[2024-05-16] MEDS: NAMENDA 10 MG PO ×2 (08:28→20:28)
[2024-05-16] MEDS: ELIQUIS 2.5 MG PO ×2 (08:29→20:28)
--- NOTE | 2024-05-16 08:44 | W.PN.PUL3 ---
Today's Communication / Plan
-
Doing well with airway clearance measures, would like smartvest set up at home, we will arrange as OP
Repeat CXR in AM
Sputum culture has been negative, can consider stopping abx or completing 3 more days of oral Augmentin (total 5 day treatment)
Further MS FU at [facility] as OP
She will ambulate with patient today
They are agreeable to discharge in next 24 hours if he remains stable
Outpatient FU with Dr Mandujano already scheduled in early Jun
Assessment
-
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 Per his , he had abrupt change in mental
status in the past 24 hours with confusion and forgetfulness. He has had diagnoses of short-term memory impairment and is on Namenda 10 mg twice daily, notes that this is more of a change than his baseline. Of note, he has had progressive
productive coughing with yellow sputum in the past month. He generally has been on and off prednisone more recently for flare ups of breathing, maintained on 10 mg daily. Initial chest imaging demonstrating bilateral congestion suggesting
possible pneumonia versus edema. We are asked for eval.
Impression:
Abnormal CXR, PNA vs edema
Productive cough, x 1 month
Confusion, acute on chronic
Mass-like consolidation
MELVIN
Conditions HUMAN RESOURCES CLERK:
PE/LLE DVT (adm 04/2023) on Eliquis, unprovoked/+fam hx of PE in mother
HTN
HLD
Chronic bronchitis/Asthma: on albuterol HFA, fluticasone/salmeterol (wixela), montelukast, spiriva, prednisone
Mass-like opacity in the right upper lobe has diminished in size dating back to [address] Mandujano
History of aspergillosis/ABPA, diagnosed 2006 at [facility], clinical diagnosis
Followed pulmonary (Mohit Muñoz)
Remains on itraconazole (has been on this for 15 years, attempted to stop at one point but developed worsening sx)
On chronic steroids/on and off, now on 10mg daily
Peripheral eosinophilia, improved down to 3.3% from 17.4%��
Bronchiectasis B/L
Pulmonary HTN- mild-moderate, PASP 31-42 at baseline
s/p RHC PA pressure 48, normal cardiac index
Gout
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
Nephrolithiasis
Mild short term memory impairment
Nonsmoker
History of melanoma�
Snoring, not yet completed HST
Plan:
O2 protocol as needed, he is 95% on RA
Not on home O2
Prior walk test on RA: 91% at rest, 92% on activity (100 ft): no dyspnea, CP, syncopal symptoms
Extensive pulm history noted above
Has not yet needed biologics in past. He follows with Dr. Mandujano as an outpatient.
states he does better on chronic pred, I will resume 20mg daily dose in speaking with
We discussed need for sputum culture to rule out superimposed infection
Airway clearance continued for bronchiectasis: Acapella valve/IS
Procal elevated
Sputum culture negative to date
He is doing well with clearance, more productive
CT obtained showing improvement in several areas of consolidation over hilum but there is new consolidation at R base
This indicates ineffective airway clearance and likely mucus impaction
Sputum culture is negative now
Repeat CXR in AM
Could stop abx since cultures have been negative
Continue asthma management
Symbicort bid (return to [facility] upon d/c)
Spiriva
Albuterol nebs prn
Guaifenesin
Has not yet needed biologics in past. He follows with Dr. Mandujano as an outpatient.
Prior history of PE/DVT maintained on Eliquis
CTA chest: extensive pulmonary emboli. No CT evidence for right heart strain.
Mass-like opacity in the right upper lobe has diminished in size dating back to 2017.
TTE: normal biventricular function, not unexpected increase in PASP in setting of PE--resolved on repeat testing as OP
Repeat proBNP to r/o CHF
ECHO in past hyperdynamic
Had slight MELVIN, creat 1.4
Confusion noted, acute on chronic
Has been taking Namenda as OP
Initial CT imaging negative, MRI showing possible angiopathy
Snoring was noted in past, has not yet obtained sleep study
Follow up outpatient [facility]
DVT prophylaxis-on full anticoagulation
Early nutrition
Early mobilization
D/w Mr Cortes, spoke to /updated today at bedside
Diagnostic Data
CXR 05/13/24- bilateral haziness, layering in fissure suggestive of congestion/cephalization/edema
CT Chest 05/14/24- There is significant masslike opacities with associated atelectasis within the right greater than left upper lobes which appears slightly increased anteriorly on the right and overall stable on the left. There are new nodular
consolidations with surrounding groundglass opacities within the right greater than left bilateral lower lobes and right middle lobe, likely representing multifocal pneumonia.
CT CHEST ION 09/22/23- 1. Significant bronchiectasis with adjacent masslike opacity within the right upper lobe, unchanged in size compared to 04/26/2023, and significantly decreased in size compared to 05/19/2017.
2. Significant bronchiectasis within the left upper lobe, unchanged compared to multiple prior studies including the most distant prior dated 01/26/2017.
3. Innumerable centrilobular nodules within the periphery of the right lower lobe, unchanged compared to the most distant prior CT.
4. Overall, findings are likely reflective of a chronic indolent infectious or inflammatory process. No acute superimposed abnormalities.
5. Cholelithiasis without evidence of acute cholecystitis.
6. Minimal calcification of the LAD. Please correlate with symptoms of and risk factors for coronary artery disease, with further workup as clinically appropriate.
Chest CTA 04-26-23: Extensive pulmonary emboli. No CT evidence for right heart strain. Mass-like opacity in the right upper lobe has diminished in size dating back to 2017. Redemonstration of tree-in-bud pulmonary opacities in the right lower lobe.
These are indicative of small airway disease. Cholelithiasis. 5 mm low-attenuation left thyroid lobe lesion.
L leg doppler US 04-26-23: thrombus in the left femoral, popliteal and peroneal veins
R leg dopper 04-26-23: negative
Exercise ST 04-20-23 CONCLUSION:
1. Nondiagnostic stress test due to failure to achieve target heart rate.
2. [address] depression inferiorly at peak exercise which resolved 1 minute into recovery.
3. Moderate risk study.
4. No prior study for comparison.
LHC/RHC 10/03/23- HEMODYNAMIC DATA
AO: 158/72
LV: 158/17
PCWP: 16
PA: 48/18
RV: 48/14
RA: 9
Oximetry: Ao 96%, PA 75%, cardiac output 5.6, cardiac index 2.8
Normal left ventricular function with EF 61%, no significant CAD
ECHO 09/29/23- Hyperdynamic left ventricular systolic function. LV ejection fraction is 70- 75%. Trace aortic regurgitation. Normal right ventricular size and function. Mild tricuspid regurgitation. Estimated pulmonary artery pressure of 31 mmHg,
assuming a right atrial pressure of 3 mmHg. Compared to 04/27/23: PASP has decreased from 75 mmHg to 31 mmHg.
TTE 04-27-23 CONCLUSIONS: LV ejection fraction is 70-75%, by visual assessment. Grossly normal wall motion. Normal right ventricular size and function. Aortic valve opens normally. Mild aortic regurgitation. Mild tricuspid regurgitation. Estimated
pulmonary artery pressure of 70-75 mmHg. Compared to prior study of 03/24/2023, PASP has increased (previously 42 mmHg).
TTE 03-24-23 CONCLUSIONS: Normal biventricular size and systolic function without regional wall motion abnormality. Estimated LVEF 60-65%. Mild concentric left ventricular hypertrophy. Mild aortic regurgitation. Mild tricuspid regurgitation. Mildly
elevated PASP. Estimated pulmonary artery pressure of 42 mmHg. Mildly dilated aortic root (SOV 4.1cm). Compared to 07/11/20: prior SOV measurement was 4.3cm. PASP was unable to be measured on prior study.
PFT 03/10/23: FVC 3.73L 87%, FEV1 2.2L 71%, ratio 59. TLC 7.78L 109%, DLCO 68% --moderate obstruction, mild diffusion impairment
02/21/24 FEV1 2.52L 82%--mild obstruction
-----
Total time spent on this encounter __54__ includes review of history, physical exam, medications, laboratory data, personal review of imaging, extensive review of outpatient records, discussion with care team and respiratory therapy.
Subjective Data
-
Date of Service:
Date of Service: May 16, 2024
Chief Complaint: Pulmonary Follow Up
Subjective:
No new events ON
Has been more productive per using airway clearance devices
Remains afebrile/on RA
Objective Data
Data Reviewed
Vital Signs / I&O / Oxygen:
Vital Signs
Temp Pulse Resp BP Pulse Ox
97.9 F 71 18 125/58 95
05/16/24 07:56 05/16/24 08:19 05/16/24 08:19 05/16/24 07:56 05/16/24 08:19
Intake and Output
05/15/24 05/16/24 05/17/24
06:59 06:59 06:59
Intake Total 1959 / 1959
Output Total 875 / 875
Balance 1085 / 1085
SaO2 95
Physical Exam
General: Comfortable and Other (NAD)
HEENT: Normocephalic, Anicteric and Moist Mucous Membranes
Cardiovascular: S1-S2 and Regular Rhythm
Respiratory: Crackles and Non-Labored Respirations
GI: Soft, Non Distended and Non Tender
Neurology: Awake, Alert, Oriented, AO x 3 and No Motor Deficits
Skin: Warm, Dry and Good Color
Labs/Micro/Reports
Lab Data
05/16/24 05:42
05/16/24 05:42
Microbiology
05/14/24 12:06 Sputum Respiratory Culture - Preliminary
Usual Respiratory Jenny
05/14/24 12:06 Sputum Gram Stain - Preliminary
[2024-05-16 12:00] VITALS: BP 139/67
--- NOTE | 2024-05-16 12:04 | CM ---
Met with patient and .
Patient sitting in chair.
Continues with IV medications
PT recommending outpatient. Will need scripts upon discharge.
PLAN: Outpatient therapy.
--- NOTE | 2024-05-16 12:37 | W.PN.HOSP.TC ---
Today's Communication/Plan
-
Continue antibiotics. Pulmonary eval
Assessment / Plan
Assessment / Plan
Physical exam:
General: Acute on chronically ill
HEENT: Normocephalic, Atraumatic and Moist Mucous Membranes
Respiratory: Bilateral scattered rhonchi; Negative Wheezes, or Rales
Cardiac: Regular Rhythm and S1/S2
GI: Soft, Nontender and Nondistended
Musculoskeletal: No Clubbing, No Cyanosis and No Edema
Neuro: Awake, Alert and Oriented, no gross neurological deficits appreciated today. Generalized weakness.
Psych: Calm
A/P:
Toxic metabolic encephalopathy:
Likely related to pneumonia. Ruled out stroke. Neurology recommended to see vascular neurologist outpatient for cerebral amyloid angiopathy. Neuro okay with anticoagulation use.
He does have underlying cognitive deficits/memory impairment.
Continue Eliquis 2.5 mg twice daily and atorvastatin 40 mg nightly
MRI of the brain no acute stroke or acute abnormalities.
Seen CT scan of the head and brain MRI no acute intracranial abnormalities
Restarted antibiotics on 05/14
Continue Namenda
Discussed with neurology today
Discussed with at bedside today on 05/15
PT OT recommend outpatient therapy
Speech therapy did VSE and unremarkable.
Sepsis present on admission due to pneumonia and rule out lung mass:
Seen CT scan of the chest and findings consistent with pneumonia and cannot rule out mass.
Pulmonary consulted and will follow up further recommendations
Continue IV Rocephin and azithromycin and might switch to oral antibiotics tomorrow
Off IV fluids
Obtained twelve-lead EKG and QTc is not prohibitive
WBC trending down from 16 to 7 today
Pulmonary eval-family would like to discuss with pulmonary today
Dizziness:
Likely orthostatic related since blood pressure was on the low side and we needed to hold some of his antihypertensives yesterday.
Keep holding parameters on antihypertensives.
Watch to see if he would require rechallenge with fluids
Monitor symptoms
Ambulate as able
Chronic pulmonary aspergillosis/asthma:
On itraconazole on a 100 mg p.o. nightly
On steroids outpatient recently. Pulmonary restarted prednisone 20 mg p.o. daily.
DVT/PE:
Continue Eliquis
Chronic kidney disease stage IIIa (no MELVIN):
Received IV fluids but now off.
Creatinine 1.0 today from 1.4. BUN is coming down as well.
Electrolytes within normal limits today.
Avoid nephrotoxic
Monitor renal function
Hypertension:
Relatively hypotensive so hold antihypertensives today and restart when blood pressure appropriate.
Continue oral hydralazine, ARB, HCTZ when appropriate.
Monitor blood pressure adjust medications accordingly
DVT prophylaxis-Eliquis
CODE STATUS-full code
Anticipated Discharge: 24 - 48 hours
Subjective/Interval History
-
Date of Service: May 16, 2024
Patient more alert today. He had an episode of lightheadedness/dizziness. Afebrile
Objective Data
-
Labs:
Laboratory Results
05/16/24
05:42
Hgb 10.5 L
Hct 30.5 L
Sodium 144
Potassium 3.9
Chloride 111 H
Carbon Dioxide 23
BUN 21 H
Creatinine 0.9
Glucose 131 H
Calcium 9.2
Vital Signs:
Vital Signs
Temp Pulse Resp BP Pulse Ox
97.9 F 71 18 125/58 95
05/16/24 07:56 05/16/24 08:19 05/16/24 08:19 05/16/24 07:56 05/16/24 08:19
I&O
05/15/24 05/16/24 05/17/24
06:59 06:59 06:59
Intake Total 1959 / 1959
Output Total 875 / 875
Balance 1085 / 1085
[2024-05-16 15:06] VITALS: BP 115/53
[2024-05-16] MEDS: HYZAAR 100-25 TABLET PO (17:36)
[2024-05-16] MEDS: SPORANOX 100 MG PO (17:38)
[2024-05-16] MEDS: LIPITOR 40 MG PO (17:38)
[2024-05-16] MEDS: SINGULAIR 10 MG PO (17:38)
[2024-05-16 18:11] LABS: Glucose - Point of Care 218 mg/dl (70-99)
[2024-05-16 19:52] VITALS: BP 92/57
[2024-05-16] MEDS: APRESOLINE PO (20:21)
[2024-05-16] MEDS: ROCEPHIN 1000 MG IV (20:21)
[2024-05-16] MEDS: ZITHROMAX INFUSION 250 IV (20:21)
[2024-05-16] MEDS: STERILE WATER FOR INJECTION 10 ML IV (20:22)
[2024-05-16 23:30] VITALS: BP 132/60
[2024-05-17 03:52] VITALS: BP 128/55
[2024-05-17] MEDS: MUCOMYST 10% 2 ML INH (05:49)
[2024-05-17] MEDS: VENTOLIN NEBULES 2.5 MG INH (05:49)
[2024-05-17] MEDS: ADVAIR HFA 230/21 MCG INHALER 2 PUFF INH (05:49)
[2024-05-17 06:46] LABS: Hematocrit 31.9 % (39.0-52.0)
[2024-05-17 07:00] VITALS: BP 130/57
[2024-05-17] MEDS: DELTASONE 20 MG PO (07:26)
[2024-05-17] MEDS: NAMENDA 10 MG PO (07:26)
[2024-05-17] MEDS: ELIQUIS 2.5 MG PO (07:27)
[2024-05-17] MEDS: MUCINEX 600 MG PO (07:28)
[2024-05-17] MEDS: APRESOLINE 75 MG PO (07:28)
[2024-05-17 07:30] LABS: Blood Urea Nitrogen 24 mg/dl (9-20); Calcium 9.8 mg/dl (8.4-10.2); Carbon Dioxide 25 mmol/L (22-30); Chloride 109 mmol/L (98-107); Estimated Creatinine Clearance 66 ml/min; Glucose 103 mg/dl (70-99); Potassium 4.3 mmol/L (3.5-5.1); Sodium 144 mmol/L (135-145); eGFR > 60.00
--- NOTE | 2024-05-17 08:59 | W.PN.HOSP.TC ---
Today's Communication/Plan
-
Discharge planning today
Assessment / Plan
Assessment / Plan
Physical exam:
General: No acute distress
HEENT: Normocephalic, Atraumatic and Moist Mucous Membranes
Respiratory: Clear to auscultation except for rhonchi on the right base; Negative Wheezes, or Rales
Cardiac: Regular Rhythm and S1/S2
GI: Soft, Nontender and Nondistended
Musculoskeletal: No Clubbing, No Cyanosis and No Edema
Neuro: Awake, Alert and Oriented, no gross neurological deficits appreciated today. Generalized weakness.
Psych: Calm
A/P:
Toxic metabolic encephalopathy:
Likely related to pneumonia. Ruled out stroke. Neurology recommended to see vascular neurologist outpatient for cerebral amyloid angiopathy. Neuro okay with anticoagulation use.
He does have underlying cognitive deficits/memory impairment.
Continue Eliquis 2.5 mg twice daily and atorvastatin 40 mg nightly
MRI of the brain no acute stroke or acute abnormalities.
Seen CT scan of the head and brain MRI no acute intracranial abnormalities
Restarted antibiotics on 05/14
Continue Namenda
Discussed with neurology today
Discussed with at bedside today on 05/15
PT OT recommend outpatient therapy
Speech therapy did VSE and unremarkable.
requests OT and speech therapy outpatient and gave prescription to RN today.
Reviewed today chest x-ray
Plan to discharge today
Sepsis present on admission due to pneumonia and less likely lung mass per pulmonary:
Seen CT scan of the chest and findings consistent with pneumonia and cannot rule out mass.
Pulmonary consulted and will follow up further recommendations
Change antibiotics to oral today.
Off IV fluids
Obtained twelve-lead EKG and QTc is not prohibitive
WBC trending down from 16 to 7
Family discussed with pulmonary and no evidence of lung mass
Dizziness:
Likely orthostatic related since blood pressure was on the low side and we needed to hold some of his antihypertensives yesterday.
Keep holding parameters on antihypertensives.
Watch to see if he would require rechallenge with fluids
Monitor symptoms
Ambulate as able
Chronic pulmonary aspergillosis/asthma:
On itraconazole on a 100 mg p.o. nightly
On steroids outpatient recently. Pulmonary restarted prednisone 20 mg p.o. daily.
DVT/PE:
Continue Eliquis
Chronic kidney disease stage IIIa (no MELVIN):
Received IV fluids but now off.
Creatinine 1.0 today from 1.4. BUN is coming down as well.
Electrolytes within normal limits today.
Avoid nephrotoxic
Monitor renal function
Hypertension:
Relatively hypotensive so hold antihypertensives today and restart when blood pressure appropriate. discussed with cardiology today who gave some recommendations of cardiac medications to take at home.
Continue oral hydralazine, ARB, HCTZ when appropriate.
Monitor blood pressure adjust medications accordingly
DVT prophylaxis-Eliquis
CODE STATUS-full code
Anticipated Discharge: Today
Subjective/Interval History
-
Date of Service: May 17, 2024
Patient feels better overall. No dizziness. Less cough. No shortness of breath. Afebrile
Objective Data
-
Labs:
Laboratory Results
05/17/24
06:03
Hgb 11.0 L
Hct 31.9 L
Sodium 144
Potassium 4.3
Chloride 109 H
Carbon Dioxide 25
BUN 24 H
Creatinine 1.0
Glucose 103 H
Calcium 9.8
Vital Signs:
Vital Signs
Temp Pulse Resp BP Pulse Ox
97.9 F 77 18 128/55 95
05/17/24 03:52 05/17/24 05:52 05/17/24 05:52 05/17/24 03:52 05/17/24 05:52
I&O
05/16/24 05/17/2424
06:59 06:59 06:59
Intake Total 1140 / 1140
Balance 1140 / 1140
[2024-05-17 09:41] VITALS: BP 121/60; PULSE 70; O2SAT 96
[2024-05-17] MEDS: NSS 250 IV (10:04)
[2024-05-17 11:00] VITALS: BP 141/69; BP 143/66; BP 144/60; PULSE 57; PULSE 60; PULSE 64
--- NOTE | 2024-05-17 12:31 | W.DCSUMMARY ---
Discharge Summary
Discharge Data
Date of Admission: 05/13/24
Date of Discharge: 05/17/24
-
Pending Results: No
Hospital Course
Patient is 73 years old male history of bronchiectasis, aspergillosis on chronic antifungal medications, asthma, pulmonary hypertension, DVT PE, presented to the hospital with mental status changes. Patient diagnosed with metabolic encephalopathy
felt to be related to pneumonia. He had workup for stroke that was negative. He was evaluated by neurology. Patient was treated with IV antibiotics and given some IV fluids. He did have mild MELVIN that resolved. Infectious process improved and
white blood cell count went back down to normal. Pulmonary was consulted. There was a CT scan of the chest that confirmed pneumonia and also there was some suspicion about masslike lesion but pulmonary did not feel there was any need for pursuing
any diagnostic sample tissue and recommended treated infectious process and follow-up images as outpatient. His steroids were restarted at increased dose per pulmonary guidance and will follow-up pulmonary as outpatient to determine further
management. Patient did have some orthostasis for which he received some fluid and also some instructions about his antihypertensive medications were given. Cardiology outpatient follow-up was recommended. PT OT speech therapy evaluated the
patient. Otherwise, patient is hemodynamically stable, afebrile, on room air, mental status back to his baseline, and eager to go home today. He will be discharged in stable condition today.
Discharge duration: 35 minutes
Discharge Plan
-
Patient Disposition: Home (Routine Discharge)
Discharge Diagnosis/Procedures: Toxic metabolic encephalopathy. Sepsis. Pneumonia. Orthostatic. Chronic pulmonary aspergillosis. Cerebral amyloid angiopathy. Cognitive deficits.
Condition: Good
Diet: Low Cholesterol
Activity: As tolerated
Blood Work: Please PCP to order CBC, BMP within 1 week
Referrals:
Primary care, provider [Other] (See less than 1 week)
Gwendolyn Ross, DO [Active] - in two to three weeks
Prescriptions:
New
prednisone 20 mg Tablet
20 mg PO DAILY 14 Days Qty: 14 0RF
cefdinir 300 mg capsule
300 mg PO BID Qty: 10 0RF
Continued
hydralazine 25 mg Tablet
75 mg PO BID
montelukast 10 mg Tablet
10 mg PO QPM
memantine 10 mg Tablet
10 mg PO BID
losartan-hydrochlorothiazide 100-25 mg tablet
1 tab PO QPM
albuterol sulfate 90 mcg/actuation HFA aerosol inhaler
2 puff INHALATION R Q4 PRN (Reason: sob/wheezing)
itraconazole 100 mg Capsule
100 mg PO QPM
Eliquis 5 mg tablet
2.5 mg PO BID
fluticasone propion-salmeterol [Wixela Inhub] 500-50 mcg/dose Blister With Device
1 inh INHALATION BID
Discharge Orders:
Discharge Patient (As Directed); Ordered 05/17/24
Ordered By: Gabe Ospina
Discharge Date and Time
Discharge Date/Time: 05/17/24 14:09
Print Language: SPANISH
--- NOTE | 2024-05-17 12:33 | PTOTSP ---
ST Acute Care Evaluations
Pt currently presents with clinical signs (e.g. 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
recall, and visuospatial skills.
Pt would benefit from continued work-up as an OP by a neurologist and/or neuropsychologist.
Recommendations:
- Continue with PHOTOGRAPHER MOTION PICTURE tx as an IP for cognitive linguistic deficits.
- Upon d/c, continue with PHOTOGRAPHER MOTION PICTURE tx as an OP for cognitive linguistic deficits.
[2024-05-17] MEDS: MUCOMYST 10% INH (13:50)
[2024-05-17] MEDS: VENTOLIN NEBULES INH (13:50)
== END 2024-05-17 14:09 | disposition home or self-care (01) | DRG 871 ==
LOC: 4 WEST ACU 23:55
PROVIDERS: Clinical Nurse Specialist Family Health; ADMITTING PHYSICIAN Internal Medicine; ATTENDING PHYSICIAN Hospitalist; CONSULT PHYSICIAN Internal Medicine; EMERGENCY PHYSICIAN Student in an Organized Health Care Education/Training Program; OTHER PHYSICIAN Psychiatry & Neurology Neurology
DX: A41.9 Sepsis, unspecified organism (principal); G92.8 Other toxic encephalopathy; J18.9 Pneumonia, unspecified organism; R47.01 Aphasia; E85.4 Organ-limited amyloidosis; B44.81 Allergic bronchopulmonary aspergillosis; N18.31 Chronic kidney disease, stage 3a; I12.9 Hypertensive chronic kidney disease with stage 1 through stage 4 chronic kidney disease, or unspecified chronic kidney disease; I25.10 Atherosclerotic heart disease of native coronary artery without angina pectoris; I44.0 Atrioventricular block, first degree; I08.2 Rheumatic disorders of both aortic and tricuspid valves; I27.20 Pulmonary hypertension, unspecified; I68.0 Cerebral amyloid angiopathy; J45.20 Mild intermittent asthma, uncomplicated; J47.9 Bronchiectasis, uncomplicated; K21.9 Gastro-esophageal reflux disease without esophagitis; E86.0 Dehydration; G30.9 Alzheimer's disease, unspecified; F02.80 Dementia in other diseases classified elsewhere, unspecified severity, without behavioral disturbance, psychotic disturbance, mood disturbance, and anxiety; G47.33 Obstructive sleep apnea (adult) (pediatric); M10.9 Gout, unspecified; E78.00 Pure hypercholesterolemia, unspecified; J31.0 Chronic rhinitis; I48.91 Unspecified atrial fibrillation; Z85.820 Personal history of malignant melanoma of skin; Z79.899 Other long term (current) drug therapy; Z86.711 Personal history of pulmonary embolism; Z86.718 Personal history of other venous thrombosis and embolism; Z79.01 Long term (current) use of anticoagulants
CPT/HCPCS: 70450; 70496; 70498; 70551; 71046; 71250; 74230; 80048; 80053; 80061; 81003; 82607; 82728; 82746; 82962; 83036; 83605; 83880; 84145; 84443; 85014; 85018; 85025; 85610; 85652; 85730; 87070; 87205; 92523; 92610; 92611; 93005; 94640; 94669; 97129; 97162; 97166; 97530; 99285; Q9967

== ENCOUNTER 2024-06-15 14:13 | Outpatient (RCR) | payer MEDICARE, SELFPAY | END 2024-06-15 23:59 | disposition home or self-care (01) | LOC: RST 14:13 | PROVIDERS: ATTENDING PHYSICIAN Internal Medicine | DX: R47.01 Aphasia (principal); F03.90 Unspecified dementia, unspecified severity, without behavioral disturbance, psychotic disturbance, mood disturbance, and anxiety; I68.0 Cerebral amyloid angiopathy; G92.8 Other toxic encephalopathy; R41.89 Other symptoms and signs involving cognitive functions and awareness | CPT/HCPCS: 92507; 92523; 97167; 97530; 97535; 97537 ==

== ENCOUNTER → 2024-07-06 09:39 | Outpatient (REF) | payer MEDICARE, SELFPAY | LOC: RAD 09:39 | PROVIDERS: ATTENDING PHYSICIAN Internal Medicine | DX: Z13.820 Encounter for screening for osteoporosis (principal); Z79.52 Long term (current) use of systemic steroids | CPT/HCPCS: 77080 ==

== ENCOUNTER → 2024-07-09 12:00 | Outpatient (REF) | payer MEDICARE, SELFPAY | LOC: DHSLP 12:00 | PROVIDERS: ATTENDING PHYSICIAN Internal Medicine Critical Care Medicine; FAMILY PHYSICIAN Internal Medicine | DX: G47.30 Sleep apnea, unspecified (principal); R06.83 Snoring | CPT/HCPCS: 95800 ==

== ENCOUNTER 2024-07-18 06:35 | Outpatient (RCR) | payer MEDICARE, SELFPAY | END 2024-07-19 08:06 | disposition home or self-care (01) | LOC: RST 06:35 | PROVIDERS: ATTENDING PHYSICIAN Internal Medicine Critical Care Medicine; FAMILY PHYSICIAN Internal Medicine | DX: R47.01 Aphasia (principal); R41.89 Other symptoms and signs involving cognitive functions and awareness; F03.90 Unspecified dementia, unspecified severity, without behavioral disturbance, psychotic disturbance, mood disturbance, and anxiety; E85.4 Organ-limited amyloidosis; Z73.6 Limitation of activities due to disability; I68.0 Cerebral amyloid angiopathy; G92.8 Other toxic encephalopathy | CPT/HCPCS: 92507; 97530; 97535; 97537 ==

== ENCOUNTER → 2024-08-23 10:58 | Outpatient (REF) | payer MEDICARE, SELFPAY | LOC: REG 10:58 | PROVIDERS: ATTENDING PHYSICIAN Internal Medicine Critical Care Medicine; FAMILY PHYSICIAN Internal Medicine | DX: R06.2 Wheezing (principal) | CPT/HCPCS: 71046 ==

== ENCOUNTER 2025-03-07 17:04 | Emergency (ER) | payer MEDICARE, SELFPAY ==
[2025-03-07 17:08] VITALS: BP 164/64
--- NOTE | 2025-03-07 17:25 | ED.GENMED ---
History of Present Illness
General
Chief Complaint: Fall
Source: patient
Exam Limitations: none
Time Seen by Provider: 03/07/25 17:19
Nursing documentation reviewed up to this point in time: agreed with
History of Present Illness
History of Present Illness:
Patient states he slipped while walking down steps, fell. He denies hitting his head. COmplains of skin tears to right forerarm and upper arm. Incident occurred just [employer].
Past History
Past History
ED Past Medical History: Asthma, HTN, Hypercholesterolemia and Other (PNA, PE, Chronic bronchitis, Renal calculus)
ED Past Surgical History: Orthopedic (5th finger surgery ) and Other (Thyroid cyst removed, left eye lid surgery, Hernia)
Social History
Tobacco: Non-smoker (Past surgical history review)
Alcohol: Occasional
Personal:
Living: with family
Employment: Retired
Review of Systems
Review of Systems
Allergies reviewed?: Yes
All Other Systems: ROS reviewed and negative except as documented in HPI and ROS
Constitutional: Reports no symptoms
EENT: Reports no symptoms
Respiratory: Reports no symptoms
Cardiac: Reports no symptoms
ABD/GI: Reports no symptoms
: Reports no symptoms
Musculoskeletal: Reports no symptoms
Skin: Reports other (SKin tear to right forearm and upper arm)
Neurological: Reports no symptoms
Psychiatric: Reports no symptoms
Phy Exam
General Physical Exam
General Presentation: well appearing and no apparent distress
General age: appears stated age
General Skin: warm and dry
General Habitus: normal
General Mental: alert
Neurological Exam
Neurological Exam: alert, oriented x3, no motor deficits, no sensory deficits, speech normal and normal gait
Musculoskeletal Exam
Musculoskeletal Exam: full ROM, neuro vasc intact and other (Full ROM to bilateral upper and lower extremities. Full nonpainful ROM to head, neck back.)
Skin Exam
Skin Exam: normal color, warm/dry and other (superficial skin tear to right volar forearm, right posterior upper arm. No active bleeding.)
Psychiatric Exam
Psychiatric Exam: normal mood/affect
Course
Orders/Labs/Results
Orders:
Orders
03/07/25 17:23
Tetanus/Diphth/Acelpertussis [Adacel] 0.5 ml IM .ONCE ONE
Vital Signs
Initial and Last Documented VS:
Initial Vital Signs
Temp Pulse Resp BP Pulse Ox
97.9 F 59 18 164/64 95
03/07/25 17:08 03/07/25 17:08 03/07/25 17:08 03/07/25 17:08 03/07/25 17:08
Last Documented Vital Signs
Temp Pulse Resp BP Pulse Ox
97.9 F 59 18 164/64 95
03/07/25 17:08 03/07/25 17:08 03/07/25 17:08 03/07/25 17:08 03/07/25 17:08
*Pulse Oximetry
SaO2: 95
Oxygen Mode of Delivery: Room air
*Critical Care Note
Total Time (30-74mins, 75-104mins- exclusive of procedures): Not Applicable
Update Note
Update Note:
Patient to ED after slip and fall down 2 steps. He denies hitting his head. No LOC. Superficial skin tears to right forearm and right upper arm. Full nonpainful ROM to extremity. No active bleeding. Basic wound care - NSS cleans, antibiotic
ointment, nonstick dressing- applied by RN, Justinap updated. Will discharge home, will continue daily wound care on own. Given instructions on s/s to return to ED and he is agreeable to plan.
ED Attending Note
-
Portions of this chart may have been created with voice recognition software.� Occasional wrong word or��sound alike� substitutions may have occurred due to the inherent limitations of voice recognition software.
Discharge Plan
Departure
Patient Disposition: Home (Routine Discharge)
Date of Disposition: 03/07/25
Time of Disposition: 17:24
Patient with high blood pressure during this ER visit?: No
Condition: Good
Covid-19: Not Applicable
Discharge Problem:
Skin tear of upper extremity
Instructions: Wound Care (DC)
Prescriptions:
No Action
hydralazine 25 mg Tablet
75 mg PO BID
montelukast 10 mg Tablet
10 mg PO QPM
memantine 10 mg Tablet
10 mg PO BID
losartan-hydrochlorothiazide 100-25 mg tablet
1 tab PO QPM
albuterol sulfate 90 mcg/actuation HFA aerosol inhaler
2 puff INHALATION R Q4 PRN (Reason: sob/wheezing)
itraconazole 100 mg Capsule
100 mg PO QPM
Eliquis 5 mg tablet
2.5 mg PO BID
fluticasone propion-salmeterol [Wixela Inhub] 500-50 mcg/dose Blister With Device
1 inh INHALATION BID
prednisone 20 mg Tablet
20 mg PO DAILY 14 Days Qty: 14 0RF
cefdinir 300 mg capsule
300 mg PO BID Qty: 10 0RF
Activity Restrictions/Additional Instructions:
Follow up with your family doctor as needed.
Interventions
Interventions:
*Risk Screen - Suicide Last Done: 03/07/25 17:08
*General Assessment Last Done: 03/07/25 17:08
*ED COVID-19 Vaccine History Last Done: 03/07/25 17:08
Discharge Date and Time
Print Language: SAMI
[2025-03-07] MEDS: ADACEL 0.5 ML IM (17:38)
== END 2025-03-07 17:54 | disposition home or self-care (01) ==
LOC: EMR 17:04
PROVIDERS: EMERGENCY PHYSICIAN Emergency Medicine; FAMILY PHYSICIAN Internal Medicine
DX: S41.111A Laceration without foreign body of right upper arm, initial encounter (principal); W10.9XXA Fall (on) (from) unspecified stairs and steps, initial encounter; Y93.01 Activity, walking, marching and hiking; Z23 Encounter for immunization; J44.9 Chronic obstructive pulmonary disease, unspecified; I10 Essential (primary) hypertension; E78.00 Pure hypercholesterolemia, unspecified; Z87.442 Personal history of urinary calculi
CPT/HCPCS: 99282; 90471; 90715

== ENCOUNTER → 2025-06-24 08:55 | Outpatient (REF) | payer MEDICARE, SELFPAY ==
[2025-06-24 09:49] LABS: Hematocrit 41.6 % (39.0-52.0); Hemoglobin 14.1 g/dL (13.0-18.0); Mean Corp Hgb Conc. 33.9 g/dL (33.0-37.0); Mean Corpuscular Volume 102.0 fL (80.0-94.0); Nucleated Red Blood Cells % 0 % (-); Platelet Count 222 10^3/uL (130-400); Red Cell Dist. Width 13.4 % (11.5-14.5)
[2025-06-24 10:35] LABS: ALT (SGPT) 22 U/L (0-50); AST (SGOT) 19 U/L (17-59); Albumin 4.2 g/dl (3.5-5.0); Alkaline Phosphatase 59 U/L (38-126); Blood Urea Nitrogen 26 mg/dl (9-20); Calcium 10.0 mg/dl (8.4-10.2); Carbon Dioxide 27 mmol/L (22-30); Chloride 108 mmol/L (98-107); Glucose 91 mg/dl (70-99); Potassium 4.9 mmol/L (3.5-5.1); Sodium 141 mmol/L (135-145); Total Protein 6.1 g/dl (6.3-8.2); eGFR > 60.00
== END ==
LOC: REG 08:55
PROVIDERS: ATTENDING PHYSICIAN Internal Medicine
DX: Z51.81 Encounter for therapeutic drug level monitoring (principal)
CPT/HCPCS: 36415; 80053; 85025

== ENCOUNTER → 2025-09-11 11:43 | Outpatient (REF) | payer MEDICARE, SELFPAY ==
[2025-09-11 12:38] LABS: Hematocrit 42.0 % (39.0-52.0); Hemoglobin 14.3 g/dL (13.0-18.0); Mean Corp Hgb Conc. 34.0 g/dL (33.0-37.0); Mean Corpuscular Volume 105.3 fL (80.0-94.0); Nucleated Red Blood Cells % 0 % (-); Platelet Count 285 10^3/uL (130-400); Red Cell Dist. Width 13.2 % (11.5-14.5)
[2025-09-11 13:08] LABS: ALT (SGPT) 19 U/L (0-50); AST (SGOT) 19 U/L (17-59); Albumin 4.2 g/dl (3.5-5.0); Alkaline Phosphatase 73 U/L (38-126); Blood Urea Nitrogen 32 mg/dl (9-20); Calcium 10.1 mg/dl (8.4-10.2); Carbon Dioxide 28 mmol/L (22-30); Chloride 108 mmol/L (98-107); Glucose 96 mg/dl (70-99); Potassium 4.8 mmol/L (3.5-5.1); Sodium 141 mmol/L (135-145); Total Protein 6.4 g/dl (6.3-8.2); eGFR 56.93
== END ==
LOC: REG 11:43
PROVIDERS: ATTENDING PHYSICIAN Internal Medicine
DX: J47.1 Bronchiectasis with (acute) exacerbation (principal)
CPT/HCPCS: 36415; 71046; 80053; 85025